=== PATIENT | female | born 1985 | race Caucasian/White ===

== ENCOUNTER 2023-01-28 20:13 | Emergency (ER) | payer OTHER, SELFPAY ==
[2023-01-28 20:20] VITALS: BP 133/81; PULSE 79; RESP 18; TEMP 37.1; O2SAT 100; BMI 20.7
--- NOTE | 2023-01-28 20:30 | XR_ITS ---
The [address] [address] Patient Name: SUKUMAR BULLOCK MRN: [id number] date: 1985 Sex: F Assigned Patient Location: ER Current Patient Location: ER Accession/Order Number: [id number] Exam Date: 01/28/2023 20:56 Report Date: 01/28/2023 21:34 At the request of: AZAEL SAMANIEGO Procedure: XR elbow RT min 3V EXAM: XR elbow RT min 3V, XR shoulder RT min 2V, XR humerus RT HISTORY: Pain following fall COMPARISON: None. TECHNIQUE: 3 views of the elbow, 2 views of the humerus and views of the shoulder FINDINGS: No osseous lesion, fracture, dislocation or subluxation. Joint spaces are normal. No visualized effusion. No visualized soft tissue edema. XR/XR elbow RT min 3V IMPRESSION: Normal x-rays Electronically authenticated by: VIRGINIA STOUT Date: 01/28/2023 21:34
--- NOTE | 2023-01-28 20:30 | XR_ITS ---
[address] [address] Patient Name: SUKUMAR BULLOCK MRN: [id number] date: 1985 Sex: F Assigned Patient Location: ER Current Patient Location: ER Accession/Order Number: [id number] Exam Date: 01/28/2023 20:56 Report Date: 01/28/2023 21:34 At the request of: AZAEL SAMANIEGO Procedure: XR humerus RT EXAM: XR elbow RT min 3V, XR shoulder RT min 2V, XR humerus RT HISTORY: Pain following fall COMPARISON: None. TECHNIQUE: 3 views of the elbow, 2 views of the humerus and views of the shoulder FINDINGS: No osseous lesion, fracture, dislocation or subluxation. Joint spaces are normal. No visualized effusion. No visualized soft tissue edema. XR/XR humerus RT IMPRESSION: Normal x-rays Electronically authenticated by: VIRGINIA STOUT Date: 01/28/2023 21:34
--- NOTE | 2023-01-28 20:30 | XR_ITS ---
The [address] [address] Patient Name: SUKUMAR BULLOCK MRN: [id number] date: 1985 Sex: F Assigned Patient Location: ER Current Patient Location: ER Accession/Order Number: [id number] Exam Date: 01/28/2023 20:56 Report Date: 01/28/2023 21:34 At the request of: AZAEL SAMANIEGO Procedure: XR shoulder RT min 2V EXAM: XR elbow RT min 3V, XR shoulder RT min 2V, XR humerus RT HISTORY: Pain following fall COMPARISON: None. TECHNIQUE: 3 views of the elbow, 2 views of the humerus and views of the shoulder FINDINGS: No osseous lesion, fracture, dislocation or subluxation. Joint spaces are normal. No visualized effusion. No visualized soft tissue edema. XR/XR shoulder RT min 2V IMPRESSION: Normal x-rays Electronically authenticated by: VIRGINIA STOUT Date: 01/28/2023 21:34
--- NOTE | 2023-01-28 20:30 | CT_ITS ---
The [address] [address] Patient Name: SUKUMAR BULLOCK MRN: [id number] date: 1985 Sex: F Assigned Patient Location: ER Current Patient Location: ER Accession/Order Number: [id number] Exam Date: 01/28/2023 20:56 Report Date: 01/28/2023 21:38 At the request of: AZAEL SAMANIEGO Procedure: CT pelvis wo con EXAM: CT pelvis wo con HISTORY: fall COMPARISON: None. TECHNIQUE: Axial CT imaging is performed through the pelvis. Sagittal and coronal reformatted/reconstructed sequences were additionally performed FINDINGS: No visualized fracture, dislocation, subluxation or osseous lesion. The hip joints and sacroiliac joints are unremarkable. Sclerosis of the right and to a lesser degree left aspect of the pubic symphysis suggesting mild chronic osteitis pubis. The visualized bowel exhibits no gross abnormality. No free intraperitoneal or pelvic air or fluid. The bladder contains no calcification. No visualized muscle hematoma. The visualized soft tissues are unremarkable. CT/CT pelvis wo con IMPRESSION: No visualized acute abnormality. Irregularity of the pubic symphysis suggesting mild chronic osteitis pubis Electronically authenticated by: VIRGINIA STOUT Date: 01/28/2023 21:38
[2023-01-28] MEDS: KETOROLAC TROMETHAMINE 30 MG/ML VIAL IM (20:43)
--- NOTE | 2023-01-28 21:01 | ED.FALL1 ---
HPI - Fall General Stated Complaint: UPPER INJURY RIGHT SIDE Time Seen by Provider: 01/28/23 20:22 Source: patient Mode of arrival: walk-in Limitations: no limitations History of Present Illness HPI Narrative: The patient presented to the ER with a right sided back and right shoulder and elbow pain that started after she fell down from her hammock, the patient mentioned that the hammock was not placed correctly and when she got in it it fell down she did not hit her head there was no loss of consciousness but she started having right shoulder and elbow pain right away The patient also have right sacral area pain and she denies any other complaints of weakness or numbness or tingling she was able to walk to the ER Related Data Home Medications Medication Instructions Recorded Confirmed furosemide 40 mg tablet 40 mg PO QDAY 01/28/23 01/28/23 Previous Rx's Medication Instructions Recorded ibuprofen 600 mg tablet 600 mg PO Q8H PRN pain #14 tabs 01/28/23 Allergies Allergy/AdvReac Type Severity Reaction Status Date / Time metoclopramide [From Reglan] AdvReac Severe Anaphylaxis Verified 01/28/23 20:27 Review of Systems ROS Status of ROS 10 or more systems reviewed and unremarkable except as noted in history and below PFSH PFS Social History Smoking status: Current every day smoker Exam Narrative Exam Narrative: Nurses notes and vital signs reviewed and patient is not hypoxic. General: Well-appearing and in no apparent distress. Skin: Warm, dry, no pallor noted. No rash. Head: Normocephalic, atraumatic. Neck: Supple, non-tender. Eye: Pupils are equal, round and EOMI. No scleral icterus. Ears, Nose, Mouth, and Throat: TM are clear, no nasal mucosal hypertrophy. Oral mucosa is moist, no posterior oropharynx erythema, uvula is mid-line Cardiovascular: Regular Rate and Rhythm without murmur, gallop or rub. Respiratory: No accessory muscle use or respiratory distress. Lungs are clear to auscultation, no wheezing, rales or rhonchi Chest Wall: no tenderness Back: No midline thoracic or lumbar vertebral tenderness. No CVA tenderness Musculoskeletal: The patient have a abrasion at the posterior aspect of the right elbow and there is mild swelling there mention to limitation of movement due to pain, the patient also have right shoulder pain with palpation and right sacral area tenderness and right buttock area tenderness GI: Abdomen is soft, non-distended. Normal bowel sounds. No masses appreciated. No tenderness to palpation. No rebound, guarding, or rigidity noted. Neurological: A&O x4. No cranial nerve dysfunction observed. No truncal ataxia. Moves all extremities. Sensation intact. Psychiatric: Cooperative and interactive. Normal mood and affect. Constitutional Vital Signs, click to edit/add: Last Vital Signs Temp 98.8 F 01/28/23 20:20 Pulse 79 01/28/23 20:20 Resp 18 01/28/23 20:20 BP 133/81 01/28/23 20:20 Pulse Ox 100 01/28/23 20:20 O2 Del Method Room Air 01/28/23 20:20 Course Vital Signs Vital signs: Vital Signs Temperature 98.8 F 01/28/23 20:20 Pulse Rate 79 01/28/23 20:20 Respiratory Rate 18 01/28/23 20:20 Blood Pressure 133/81 01/28/23 20:20 Pulse Oximetry 100 01/28/23 20:20 Oxygen Delivery Method Room Air 01/28/23 20:20 Temperature 98.8 F 01/28/23 20:20 Pulse Rate 79 01/28/23 20:20 Respiratory Rate 18 01/28/23 20:20 Blood Pressure 133/81 01/28/23 20:20 Pulse Oximetry 100 01/28/23 20:20 Oxygen Delivery Method Room Air 01/28/23 20:20 MDM - Fall MDM Narrative Medical decision making narrative: The patient x-rays of the elbow shoulder as well as humerus showed no acute pathology as well as the CAT scan of the pelvis The patient was feeling better after Toradol treatment in the ER discharged home with sling applied as well as Amrit wrap and supportive care with ibuprofen The patient is to follow up with primary care physician in next 2-3 days or to return to the emergency department should any of the signs or symptoms worsen or new symptoms develop. The patient agrees with the following Diagnosis and Treatment plan and the patient will be discharged home. Discharge Plan Discharge Clinical Impression: Contusion of elbow, Contusion of sacrum Patient Disposition: Home, Self-Care Time of Disposition Decision: 21:50 Prescriptions / Home Meds: New ibuprofen 600 mg tablet 600 mg PO Q8H PRN (Reason: pain) Qty: 14 0RF No Action furosemide 40 mg tablet 40 mg PO QDAY Instructions: Contusion in Adults (ED) Stand Alone Forms: Portal Instructions Referrals: Physician,Non-Staff, MD [Primary Care Provider] - 1 week
[2023-01-28] MEDS: BACITRACIN 0.9 GM PACKET 1 PACKET TOPICAL (22:07)
== END 2023-01-28 22:30 | disposition home or self-care (01) ==
PROVIDERS: Emergency Provider Emergency Medicine
DX: S50.01XA Contusion of right elbow, initial encounter (principal); S30.0XXA Contusion of lower back and pelvis, initial encounter; W17.89XA Other fall from one level to another, initial encounter; Z79.899 Other long term (current) drug therapy; F17.210 Nicotine dependence, cigarettes, uncomplicated
CPT/HCPCS: 72192; 73030; 73060; 73080; 96372; 99285

== ENCOUNTER 2023-12-23 22:55 | Emergency (ER) | payer OTHER, SELFPAY ==
[2023-12-23 22:59] VITALS: BP 137/99; PULSE 76; TEMP 36.6; O2SAT 100
--- NOTE | 2023-12-23 23:38 | ED_ITS ---
HPI - Abdominal Pain General Chief Complaint: Abdominal Pain Stated Complaint: ABDOMINAL PAIN Time Seen by Provider: 12/23/23 23:34 Source: patient and family Mode of arrival: Wheelchair Limitations: no limitations History of Present Illness HPI narrative: presents complaining of abdominal pain and dysphagia. States what ever she takes in does not want to go down. states was seen at [facility] 3-4 weeks ago . states she was advised she had a blockage . States they wanted to admit her but she wanted to go home and was discharged. Now presents here complaining of abdominal pain and vomiting since yesterday. Describes abdominal distension tonight. No BM in 2 days. No fever. not able to keep anything down. Related Data Allergies Allergy/AdvReac Type Severity Reaction Status Date / Time latex Allergy Unknown Verified 12/23/23 23:04 metoclopramide [From Reglan] AdvReac Severe Anaphylaxis Verified 12/23/23 23:04 Review of Systems ROS Status of ROS 10 or more systems reviewed and unremark able except as noted in history and below PFSH PFS Social History Smoking status: Current every day smoker Exam Constitutional Vital Signs, click to edit/add: Last Vital Signs Temp 97.8 F 12/23/23 22:59 Pulse 74 12/24/23 03:03 Resp 16 12/24/23 03:03 BP 128/72 12/24/23 03:03 Pulse Ox 100 12/24/23 03:03 O2 Del Method Room Air 12/23/23 22:59 Common normals: no apparent distress (mild-mod distress), oriented x3 and alert HENMT Common normals: normocephalic and head/scalp atraumatic Eye Common normals: PERRL, EOMs intact bilaterally and conjunctivae normal Respiratory Common normals: normal respiratory effort, no retractions, no use of accessory muscles and clear to auscultation bilaterally Cardio Common normals: regular rate, regular rhythm, S1 normal heart sound and S2 normal heart sound GI Other: abdomen distended but not firm. gen. tenderness Extremity Common normals: normal to inspection and full ROM Neuro Common normals: oriented x3, CN's II-XII intact bilaterally, moves all extremities, no focal motor deficits and no sensory deficits noted Psych Appearance: grossly normal Course Vital Signs Vital signs: Vital Signs Temperature 97.8 F 12/23/23 22:59 Pulse Rate 76 12/23/23 22:59 Respiratory Rate 18 12/23/23 22:59 Blood Pressure 137/99 H 12/23/23 22:59 Pulse Oximetry 100 12/23/23 22:59 Oxygen Delivery Method Room Air 12/23/23 22:59 Temperature 97.8 F 12/23/23 22:59 Pulse Rate 74 12/24/23 03:03 Respiratory Rate 16 12/24/23 03:03 Blood Pressure 128/72 12/24/23 03:03 Pulse Oximetry 100 12/24/23 03:03 Oxygen Delivery Method Room Air 12/23/23 22:59 MDM - Abdominal Pain MDM Narrative Medical decision making narrative: patient presents with dysphagia/vomiting and abdominal pain. States she is not able to keep anything down. Abdomen is distended but not firm. Labs with mildly elevated WBC and normal LFTs and lipase. CT with findings of 10mm dilated CBD with abrupt narrowing at the distal CBD near the pancreatic head/ampullary region. Main pancreatic duct is dilated up to 4mm. mod. gas and mild liquid stool. no peripancreatic inflammatory stranding. patient continues to complain of pain and will likely need GI consult with complaint of dysphagia and possible need for MRCP. [facility] con tacted and waiting for call back Discussed with hospitalist and patient accepted in transfer Lab Data Labs: Lab Results 12/23/23 12/24/23 Range/Units 23:50 02:02 WBC 13.6 H (4.0-11.0) 10^3/uL RBC 4.78 (4.20-5.40) 10^6/uL Hgb 14.5 (12.0-16.0) g/dL Hct 43.0 (36.0-48.0) % MCV 90.0 (81.0-99.0) fL MCH 30.3 (26.7-34.0) pg MCHC 33.7 (29.9-35.2) g/dL RDW 13.2 (11.0-15.0) % Plt Count 269 (150-450) 10^3/uL MPV 10.5 (9.5-13.5) fL Neut % (Auto) 75.9 H (43.0-75.0) % Lymph % (Auto) 14.8 L (20.5-60.0) % Mcdonald % (Auto) 8.3 (1.7-12.0) % Eos % (Auto) 0.2 L (0.9-7.0) % Baso % (Auto) 0.5 (0.2-2.0) % Neut # (Auto) 10.3 H (1.4-6.5) 10^3/uL Lymph # (Auto) 2.0 (1.2-3.8) 10^3/uL Mcdonald # (Auto) 1.1 H (0.3-0.8) 10^3/uL Eos # (Auto) 0.0 (0.0-0.7) 10^3/uL Baso # (Auto) 0.1 (0.0-0.1) 10^3/uL Abs Immat Gran (auto) 0.04 H (0.00-0.03) 10^3/uL Imm/Tot Granulo (auto) 0.3 (0.0-0.5) % Sodium 140 (136-145) mmol/L Potassium 3.7 (3.5-5.1) mmol/L Chloride 104 (98-107) mmol/L Carbon Dioxide 22.9 (21.0-32.0) mmol/L Anion Gap 16.8 BUN 15.0 (7.0-18.0) mg/dL Creatinine 0.66 (0.55-1.02) mg/dL Est GFR ( Amer) >60 (>=60) Est GFR (Non-Af Amer) >60 (>=60) BUN/Creatinine Ratio 22.7 Glucose 117 H (74-106) mg/dL Lactate 0.9 (0.4-2.0) mmol/L Calcium 9.1 (8.5-10.1) mg/dL Total Bilirubin 0.9 (0.2-1.0) mg/dL AST 8 L (15-37) U/L ALT 17 (14-59) U/L Alkaline Phosphatase 97 (46-116) U/L Troponin I High Sens 4.9 (4.0-51.3) pg/mL Total Protein 7.6 (6.4-8.2) g/dL Albumin 4.1 (3.4-5.0) g/dL Globulin 3.5 g/dL Albumin/Globulin Ratio 1.2 Lipase 39.0 (16.0-77.0) U/L Urine Color Yellow (YELLOW) Urine Clarity Clear (CLEAR) Urine pH 5.5 (5.0-9.0) Ur Specific [place] 1.020 (1.005-1.025) Urine Protein 30 A (NEG/TRACE) mg/dL Urine Glucose (UA) Negative (NEGATIVE) mg/dL Urine Ketones Negative (NEGATIVE) mg/dL Urine Occult Blood Trace-i (NEGATIVE) Urine Nitrite Negative (NEGATIVE) Urine Bilirubin Negative (NEGATIVE) Urine Urobilinogen 1.0 (0.2-1.0) EU/dL Ur Leukocyte Esterase Negative (NEGATIVE) Urine RBC 0-2 (0-2) #/HPF Urine WBC None seen (NONE SEEN) #/HPF Ur Squamous Epith Cells Rare (NONE/RARE) #/LPF Urine Crystals None seen (None Seen) #/HPF Urine Bacteria None seen (NONE SEEN) #/HPF Urine Casts None seen (NONE SEEN) #/LPF Urine Mucus None seen (NONE SEEN) Ur Culture Indicated? No Imaging Data CT scan - abdomen: Radiologist's impression: ITS Impressions Abdomen/Pelvis CT 12/23/23 23:42 IMPRESSION: 10 mm diameter dilated common bile duct with abrupt narrowing at the distal common bile duct near the pancreatic head/ampullary region. Main pancreatic duct is dilated up to 4 mm diameter. Recommend close clinical attention with biliary enzymes. If enzymes are abnormally elevated, then recommend MRI abdomen with MRCP and/or cholangiogram to further evaluate for any biliary ductal obstructive etiology or pancreatic lesion. No peripancreatic inflammatory stranding or free fluid collection. Status post cholecystectomy and appendectomy. Moderate amount of gas and mild amount of liquid stool within the colon. No pericolonic inflammatory stranding. Electronically authenticated by: ISAAK HENRIQUEZ Date: 12/24/2023 01:48 Discharge Plan Discharge Chief Complaint: Abdominal Pain Clinical Impression: Abdominal pain, Dysphagia Patient Disposition: [facility]
--- NOTE | 2023-12-23 23:42 | CT_ITS ---
The [address] [address] Patient Name: SUKUMAR BULLOCK MRN: [id number] date: 1985 Sex: F Assigned Patient Location: ER Current Patient Location: ER Accession/Order Number: [id number] Exam Date: 12/23/2023 23:59 Report Date: 12/24/2023 01:48 At the request of: ZITA GOODMAN Procedure: CT abdomen pelvis w con EXAM: CT abdomen pelvis w con HISTORY: Abdominal pain and vomiting COMPARISON: CT pelvis 01/28/2023, CT abdomen pelvis 05/24/2013 TECHNIQUE: Multiple axial views CT abdomen pelvis or acquired after administration of 100 cc Omnipaque 300 IV contrast. Coronal sagittal reformats performed. FINDINGS: Visualized lung bases and cardiac apex are unremarkable. Status post cholecystectomy. 10 mm diameter dilated common bile duct with abrupt narrowing at the distal common bile duct near the pancreatic head/ampullary region (image 25 series 5). Main pancreatic duct is dilated up to 4 mm diameter. No peripancreatic inflammatory stranding or free fluid collection. Liver, spleen, adrenal glands, kidneys, and underdistended urinary bladder are unremarkable. Appendix is surgically absent. The uterus is seen with endometrial complex measuring 16 mm thick. A 1.5 cm left ovarian cyst. Small hiatal hernia. Stomach is underdistended. No perigastric inflammatory stranding. Moderate amount of gas and mild amount of liquid stool within the colon. No evidence for small bowel obstruction, large ascites, or free air. Retroperitoneal vasculature is unremarkable. No acute bony abnormality. CT/CT abdomen pelvis w con IMPRESSION: 10 mm diameter dilated common bile duct with abrupt narrowing at the distal common bile duct near the pancreatic head/ampullary region. Main pancreatic duct is dilated up to 4 mm diameter. Recommend close clinical attention with biliary enzymes. If enzymes are abnormally elevated, then recommend MRI abdomen with MRCP and/or cholangiogram to further evaluate for any biliary ductal obstructive etiology or pancreatic lesion. No peripancreatic inflammatory stranding or free fluid collection. Status post cholecystectomy and appendectomy. Moderate amount of gas and mild amount of liquid stool within the colon. No pericolonic inflammatory stranding. Electronically authenticated by: ISAAK HENRIQUEZ Date: 12/24/2023 01:48
[2023-12-23] MEDS: ONDANSETRON PF 4 MG/2 ML VIAL IV (23:54)
[2023-12-23] MEDS: 0.9 % SODIUM CHLORIDE 1,000 ML 999 ML IV (23:54)
[2023-12-23] MEDS: FENTANYL CITRATE/PF 100 MCG/2 ML VIAL 50 MCG IV (23:55)
[2023-12-23 23:57] LABS: Basophils Absolute Auto 0.1 10^3/uL (0.0-0.1); Basophils Percent Auto 0.5 % (0.2-2.0); Eosinophils Percent Auto 0.2 % (0.9-7.0); Hemoglobin 14.5 g/dL (12.0-16.0); Immature Granulocytes Abs Auto 0.04 10^3/uL (0.00-0.03); Immature Granulocytes Pct Auto 0.3 % (0.0-0.5); Lymphocytes Percent Auto 14.8 % (20.5-60.0); Mean Corpuscular HGB Conc 33.7 g/dL (29.9-35.2); Mean Corpuscular Hemoglobin 30.3 pg (26.7-34.0); Mean Platelet Volume 10.5 fL (9.5-13.5); Monocytes Absolute Auto 1.1 10^3/uL (0.3-0.8); Monocytes Percent Auto 8.3 % (1.7-12.0); Neutrophils Absolute Auto 10.3 10^3/uL (1.4-6.5); Neutrophils Percent Auto 75.9 % (43.0-75.0); Platelet Count 269 10^3/uL (150-450); Red Blood Count 4.78 10^6/uL (4.20-5.40); Red Cell Distribution Width 13.2 % (11.0-15.0); White Blood Count 13.6 10^3/uL (4.0-11.0)
[2023-12-24] VITALS (7 sets, daily range): BP systolic 106–150; BP diastolic 72–100; PULSE 62–74; O2SAT 100
[2023-12-24 00:13] LABS: Alanine Aminotransferase 17 U/L (14-59); Albumin Globulin Ratio 1.2; Albumin Level 4.1 g/dL (3.4-5.0); Alkaline Phosphatase 97 U/L (46-116); Anion Gap 16.8; Aspartate Amino Transferase 8 U/L (15-37); BUN Creatinine Ratio 22.7; Bilirubin Total 0.9 mg/dL (0.2-1.0); Calcium 9.1 mg/dL (8.5-10.1); Carbon Dioxide 22.9 mmol/L (21.0-32.0); Chloride 104 mmol/L (98-107); Estimated GFR (African America >60 (>=60); Estimated GFR (Non-African Ame >60 (>=60); Globulin 3.5 g/dL; Glucose 117 mg/dL (74-106); Potassium 3.7 mmol/L (3.5-5.1); Sodium 140 mmol/L (136-145); Total Protein 7.6 g/dL (6.4-8.2)
[2023-12-24 00:15] LABS: Lactate/Lactic Acid 0.9 mmol/L (0.4-2.0)
[2023-12-24 00:16] LABS: Troponin I High Sensitivity 4.9 pg/mL (4.0-51.3)
[2023-12-24 02:08] LABS: Bilirubin Urine NEGATIVE (NEGATIVE); Blood Urine TRACE-I (NEGATIVE); Clarity Urine CLEAR (CLEAR); Color Urine YELLOW (YELLOW); Glucose Urine UA NEGATIVE (NEGATIVE); Ketones Urine NEGATIVE (NEGATIVE); Leukocyte Esterase Urine NEGATIVE (NEGATIVE); Nitrite Urine NEGATIVE (NEGATIVE); Protein Urine 30 mg/dL (NEG/TRACE); pH Urine 5.5 (5.0-9.0)
[2023-12-24 02:10] LABS: Urine Microscopic Indicated YES
[2023-12-24 02:14] LABS: Bacteria Urine NONE SEEN #/HPF (NONE SEEN); Cast Seen? NONE SEEN #/LPF (NONE SEEN); Crystals Seen? None Seen #/HPF (None Seen); Mucus Urine NONE SEEN (NONE SEEN); RBC Urine 0-2 #/HPF (0-2); Squamous Epithelial Cell Urine RARE #/LPF (NONE/RARE); Urine Culture Indicated NO; WBC Urine NONE SEEN #/HPF (NONE SEEN)
[2023-12-24] MEDS: 0.9 % SODIUM CHLORIDE 1,000 ML 999 ML IV (03:01)
--- NOTE | 2023-12-24 03:50 | ECG_ITS ---
The [facility] Test Date: 2023-12-24 Pat Name: SUKUMAR BULLOCK Department: Room: - Gender: Female [employer]: : 1985 Requested By: JOSE DAVID PARMAR Order Number: [id number] Reading MD: JOSE DAVID PARMAR Measurements Intervals [place] Rate: 63 P: 72 [place]: 114 QRS: 78 QRSD: 78 T: 43 QT: 448 QTc: 456 Interpretive Statements 1100 Sinus rhythm 2210 Short [place] interval 8304 Long QTc interval 9150 abnormal ECG No previous ECG available for comparison Electronically Signed On 12-24-2023 5:44:06 EDT by JOSE DAVID PARMAR
[2023-12-24] MEDS: ONDANSETRON PF 4 MG/2 ML VIAL IV ×2 (04:09→08:52)
[2023-12-24] MEDS: FENTANYL CITRATE/PF 100 MCG/2 ML VIAL 50 MCG IV ×2 (04:09→08:51)
[2023-12-24] MEDS: 0.9 % SODIUM CHLORIDE 1,000 ML 125 ML IV (04:09)
== END 2023-12-24 09:05 | disposition short-term general hospital (02) ==
PROVIDERS: Emergency Provider Internal Medicine
DX: R10.9 Unspecified abdominal pain (principal); R13.10 Dysphagia, unspecified; F17.200 Nicotine dependence, unspecified, uncomplicated
CPT/HCPCS: 36415; 74177; 80053; 81001; 83605; 83690; 84484; 85025; 93005; 96361; 96374; 96375; 96376; 99285; J2405; J3010; Q9967

== ENCOUNTER 2024-11-15 19:03 | Emergency (ER) | payer SELFPAY ==
[2024-11-15 19:13] VITALS: BP 138/92; PULSE 90; TEMP 36.9; O2SAT 100; BMI 17.5
--- NOTE | 2024-11-15 19:29 | ED_ITS ---
HPI HPI - General Adult General Chief complaint: Headache Stated complaint: HEADACHE Time Seen by Provider: 11/15/24 19:21 Source: patient Mode of arrival: walk-in History of Present Illness HPI narrative: patient states one year ago lumps were found in her left breast suspicious for CA. Biopsy was planned but she never followed up. States she now has lumps right breast and also her scalp. presents today because of occipital headache. Has nausea but has not vomited. Additionally complains of abdominal pain. No diarrhea. No fever or urinary symptoms Related Data Allergies Allergy/AdvReac Type Severity Reaction Status Date / Time latex Allergy Unknown Verified 12/23/23 23:04 metoclopramide (From Reglan) AdvReac Severe Anaphylaxis Verified 12/23/23 23:04 Opioid HPI Opioid Management Most Recent Opioid Data: Last Pain Scale 4 11/15/24, 23:54 Last ED Pain Assessment 11/15/24, 23:54 Last MAR Pain Assessment 11/15/24, 20:55 Review of Systems ROS Status of ROS 10 or more systems reviewed and unremark able except as noted in history and below PFSH [facility] Medical History (Updated 11/16/24 @ 00:01 by Bernardo Jennings MD) History of lupus History of seizures ?Z87.898 - Personal history of other specified conditions (ICD-10) History of kidney stones ?Z87.442 - Personal history of urinary calculi (ICD-10) History of hypertension ?Z86.79 - Personal history of other diseases of the circulatory system (ICD- 10) History of depression ?Z86.59 - Personal history of other mental and behavioral disorders (ICD-10) History of asthma ?Z87.09 - Personal history of other diseases of the respiratory system (ICD- 10) Surgical History (Updated 12/24/23 @ 07:15 by Steffen Kidd) History of laparoscopy ?Z98.890 - Other specified postprocedural states (ICD-10) History of tubal ligation ?Z98.51 - Tubal ligation status (ICD-10) History of laparoscopic cholecystectomy ?Z90.49 - Acquired absence of other specified parts of digestive tract (ICD- 10) History of section ?Z98.891 - History of uterine scar from previous surgery (ICD-10) History of appendectomy ?Z90.49 - Acquired absence of other specified parts of digestive tract (ICD- 10) Social History Smoking status: Current every day smoker Little interest or pleasure in doing things: not at all Feeling down, depressed, or hopeless: not at all Exam Constitutional Vital Signs, click to edit/add: Last Vital Signs Temp 98.4 F 11/15/24 19:13 Pulse 95 H 11/15/24 23:53 Resp 16 11/15/24 23:53 BP 123/82 11/15/24 23:53 Pulse Ox 99 11/15/24 23:53 O2 Del Method Nasal Cannula 11/15/24 23:53 Common normals: average body habitus, oriented x3, no limitations, healthy appearing, alert and well nourished [facility] Common normals: head/scalp atraumatic Other: palpable occipital scalp lesion sl. raised Eye Common normals: PERRL and EOMs intact bilaterally Respiratory Common normals: normal respiratory effort, no retractions, no use of accessory muscles and clear to auscultation bilaterally Cardio Common normals: regular rate, regular rhythm, S1 normal heart sound and S2 no rmal heart sound GI Other: gen. nonspecific tenderness Extremity Common normals: normal to inspection and full ROM Neuro Common normals: oriented x3, CN's II-XII intact bilaterally, moves all extremities and no focal motor deficits Psych Appearance: grossly normal Course Vital Signs Vital signs: Vital Signs Temperature 98.4 F 11/15/24 19:13 Pulse Rate 90 11/15/24 19:13 Respiratory Rate 16 11/15/24 19:13 Blood Pressure 138/92 H 11/15/24 19:13 Pulse Oximetry 100 11/15/24 19:13 Oxygen Delivery Method Room Air 11/15/24 19:13 Temperature 98.4 F 11/15/24 19:13 Pulse Rate 95 H 11/15/24 23:53 Respiratory Rate 16 11/15/24 23:53 Blood Pressure 123/82 11/15/24 23:53 Pulse Oximetry 99 11/15/24 23:53 Oxygen Delivery Method Nasal Cannula 11/15/24 23:53 Medical Decision Making MDM Narrative Medical decision making narrative: patient presents because of a headache. states a year ago she was found to have left breast lump suspicious for CA and biopsy recommended. She did not follow up. She feels she has lumps right breast now . she also endorses lumps in her scalp. Scalp with sl raised lesion but nothing concerning. Her abdomen was tender. CT abdomen with constipation. no acute process. CT C-spine and brain without acute findings. headache treated and patient feeling better. Went in the room to discuss her findings and she was outside smoking a cigarette. She was informed of he results when she returned and directed to follow up with her doctor regarding her breast lumps Lab Data Labs: Lab Results 11/15/24 11/15/24 Range/Units 19:39 20:37 WBC 10.2 (4.0-11.0) 10^3/uL RBC 4.40 (4.20-5.40) 10^6/uL Hgb 14.2 (12.0-16.0) g/dL Hct 39.4 (36.0-48.0) % MCV 89.5 (81.0-99.0) fL MCH 32.3 (26.7-34.0) pg MCHC 36.0 H (29.9-35.2) g/dL RDW 12.3 (11.0-15.0) % Plt Count 203 (150-450) 10^3/uL MPV 10.6 (9.5-13.5) fL Neut % (Auto) 66.5 (43.0-75.0) % Lymph % (Auto) 21.9 (20.5-60.0) % Morgan % (Auto) 9.9 (1.7-12.0) % Eos % (Auto) 1.0 (0.9-7.0) % Baso % (Auto) 0.5 (0.2-2.0) % Neut # (Auto) 6.8 H (1.4-6.5) 10^3/uL Lymph # (Auto) 2.2 (1.2-3.8) 10^3/uL Morgan # (Auto) 1.0 H (0.3-0.8) 10^3/uL Eos # (Auto) 0.1 (0.0-0.7) 10^3/uL Baso # (Auto) 0.1 (0.0-0.1) 10^3/uL Abs Immat Gran (auto) 0.02 (0.00-0.03) 10^3/uL Imm/Tot Granulo (auto) 0.2 (0.0-0.5) % Sodium 140 (136-145) mmol/L Potassium 3.7 (3.5-5.1) mmol/L Chloride 104 (98-107) mmol/L Carbon Dioxide 24.4 (21.0-32.0) mmol/L Anion Gap 15.3 BUN 16.0 (7.0-18.0) mg/dL Creatinine 0.86 (0.55-1.02) mg/dL Est GFR ( Amer) >60 (>=60 mL/min/1.73m^2) Est GFR (Non-Af Amer) >60 (>=60 mL/min/1.73m^2) BUN/Creatinine Ratio 18.6 Glucose 104 (74-106) mg/dL Calcium 8.8 (8.5-10.1) mg/dL Total Bilirubin 0.6 (0.2-1.0) mg/dL AST 13 L (15-37) U/L ALT 16 (14-59) U/L Alkaline Phosphatase 87 (46-116) U/L Total Protein 6.6 (6.4-8.2) g/dL Albumin 3.7 (3.4-5.0) g/dL Globulin 2.9 g/dL Albumin/Globulin Ratio 1.3 Urine Color Lt. yellow (YELLOW) Urine Clarity Sl cloudy (CLEAR) Urine pH 6.5 (5.0-9.0) Ur Specific Hadley <=1.005 A (1.005-1.025) Urine Protein Trace (NEG/TRACE) mg/dL Urine Glucose (UA) Negative (NEGATIVE) mg/dL Urine Ketones Negative (NEGATIVE) mg/dL Urine Occult Blood Trace-i (NEGATIVE) Urine Nitrite Negative (NEGATIVE) Urine Bilirubin Negative (NEGATIVE) Urine Urobilinogen 1.0 (0.2-1.0) EU/dL Ur Leukocyte Esterase Negative (NEGATIVE) Urine RBC 0-2 (0-2) #/HPF Urine WBC 2-5 A (NONE SEEN) #/HPF Ur Squamous Epith Cells Moderate A (NONE/RARE) #/LPF Urine Crystals None seen (None Seen) #/HPF Urine Bacteria Trace A (NONE SEEN) #/HPF Urine Casts None seen (NONE SEEN) #/LPF Urine Mucus None seen (NONE SEEN) Ur Culture Indicated? No Discharge Plan Discharge Chief Complaint: Headache Clinical Impression: Headache, Constipation Patient Disposition: Home, Self-Care Condition: Good Mode of Transportation: Private Vehicle Print Language: Upper Sorbian Instructions: Constipation (ED), Acute Headache (ED) Additional Instructions: follow up with your doctor next week or with Dr Alonso for recheck and to workup your breast mass Referrals: Physician,Non-Staff, MD [Primary Care Provider] - 1 week Discharge Date/Time: 11/16/24 00:10
[2024-11-15 19:45] LABS: Basophils Absolute Auto 0.1 10^3/uL (0.0-0.1); Basophils Percent Auto 0.5 % (0.2-2.0); Eosinophils Absolute Auto 0.1 10^3/uL (0.0-0.7); Hematocrit 39.4 % (36.0-48.0); Hemoglobin 14.2 g/dL (12.0-16.0); Immature Granulocytes Abs Auto 0.02 10^3/uL (0.00-0.03); Immature Granulocytes Pct Auto 0.2 % (0.0-0.5); Lymphocytes Absolute Auto 2.2 10^3/uL (1.2-3.8); Lymphocytes Percent Auto 21.9 % (20.5-60.0); Mean Corpuscular Hemoglobin 32.3 pg (26.7-34.0); Mean Corpuscular Volume 89.5 fL (81.0-99.0); Mean Platelet Volume 10.6 fL (9.5-13.5); Monocytes Percent Auto 9.9 % (1.7-12.0); Neutrophils Absolute Auto 6.8 10^3/uL (1.4-6.5); Neutrophils Percent Auto 66.5 % (43.0-75.0); Platelet Count 203 10^3/uL (150-450); Red Cell Distribution Width 12.3 % (11.0-15.0); White Blood Count 10.2 10^3/uL (4.0-11.0)
[2024-11-15] MEDS: MAGNESIUM SULFATE IN WATER 2 GM/50 ML PREMIX IV (19:53)
[2024-11-15] MEDS: METHYLPREDNISOLONE SOD SUCC PF 125 MG/2 ML VIAL IVP (19:53)
[2024-11-15] MEDS: ONDANSETRON PF 4 MG/2 ML VIAL IV (19:53)
[2024-11-15 19:58] LABS: Alanine Aminotransferase 16 U/L (14-59); Albumin Globulin Ratio 1.3; Albumin Level 3.7 g/dL (3.4-5.0); Alkaline Phosphatase 87 U/L (46-116); Anion Gap 15.3; Aspartate Amino Transferase 13 U/L (15-37); BUN Creatinine Ratio 18.6; Bilirubin Total 0.6 mg/dL (0.2-1.0); Calcium 8.8 mg/dL (8.5-10.1); Carbon Dioxide 24.4 mmol/L (21.0-32.0); Chloride 104 mmol/L (98-107); Estimated GFR (African America >60 (>=60 mL/min/1.73m^2); Estimated GFR (Non-African Ame >60 (>=60 mL/min/1.73m^2); Globulin 2.9 g/dL; Glucose 104 mg/dL (74-106); Potassium 3.7 mmol/L (3.5-5.1); Sodium 140 mmol/L (136-145); Total Protein 6.6 g/dL (6.4-8.2)
[2024-11-15] MEDS: MORPHINE SULFATE 2 MG/ML SYRINGE IV (20:55)
[2024-11-15 21:01] LABS: Bilirubin Urine NEGATIVE (NEGATIVE); Blood Urine TRACE-I (NEGATIVE); Clarity Urine SL CLOUDY (CLEAR); Color Urine LT. YELLOW (YELLOW); Glucose Urine UA NEGATIVE (NEGATIVE); Ketones Urine NEGATIVE (NEGATIVE); Leukocyte Esterase Urine NEGATIVE (NEGATIVE); Nitrite Urine NEGATIVE (NEGATIVE); Protein Urine TRACE mg/dL (NEG/TRACE); Specific Gravity Urine <=1.005 (1.005-1.025); pH Urine 6.5 (5.0-9.0)
[2024-11-15 21:04] LABS: Bacteria Urine TRACE #/HPF (NONE SEEN); Cast Seen? NONE SEEN #/LPF (NONE SEEN); Crystals Seen? None Seen #/HPF (None Seen); Mucus Urine NONE SEEN (NONE SEEN); RBC Urine 0-2 #/HPF (0-2); Squamous Epithelial Cell Urine MODERATE #/LPF (NONE/RARE); Urine Culture Indicated NO
[2024-11-15 23:53] VITALS: BP 123/82; PULSE 95; O2SAT 99
== END 2024-11-16 00:10 | disposition home or self-care (01) ==
PROVIDERS: Emergency Provider Internal Medicine
DX: R51.9 Headache, unspecified (principal); K59.00 Constipation, unspecified; N63.20 Unspecified lump in the left breast, unspecified quadrant; F17.210 Nicotine dependence, cigarettes, uncomplicated
CPT/HCPCS: 36415; 70450; 72125; 74177; 80053; 81001; 85025; 96365; 96375; 99285; J2270; J2405; J2919; J3475; Q9967

== ENCOUNTER 2024-12-15 12:23 | Emergency (ER) | payer OTHER, SELFPAY ==
--- OUTSIDE RECORDS SUMMARY | 2024-12-12 21:37 | XMS_ITS | Encounter Summary ---
Author Organization [facility] tem Address [id number] [address] [place] [address] Care Team Providers Care Christian Science Nurse Name Role Phone Chiquita Waynemike Singh JEWEL FLAT SURFACER-REMOTE SENSING RESEARCH SCIENTIST Primary Care Provide r Reason for Visit * Reason Comments Knee Pain left Encounter Details Date Type Department Care Team (Late st Contact Info) Description 12/12/2024 9:37 PM EDT - 12/12/2024 11:07 PM EDT Emergency [facility] - Emergency [address] [place] [address] Kobe Shannon, [address] [id number] Acute pain of left knee (Primary Dx) Discharge Disposition: Home Social History Tobacco Use Types Packs/Day Years Used Date Smoking Tobacco: Every Day Cigarettes 0.5 11.5 Started: 2013 Smokeless Tobacco: Never Alcohol Use Standard Drinks/Week Comments Yes 0 (1 standard drink = 0.6 oz pur e alcohol) Occasional [facility] Utilities Answer Date Recorded In the past 12 months has [employer] electric, gas, oil, or water company threatened to shut off services in your home? No 12/24/2023 AUDIT-C Answer Date Recorded Q1: How often do you have a drink containing alc ohol? 2-4 times a month 12/24/2023 Q2: How many drinks containi ng alcohol do you have on a typical day when you are drinking? 3 or 4 12/24/2023 Q3: How often do you have si x or more drinks on one occasion? Never 12/24/2023 PHQ-2 Answer Date Recorded Total Score 0 12/24/2023 PRAPARE - Transportation Answer Date Re corded In the past 12 months, has l ack of transportation kept you from medical appointments or from getting medications? No 12/01 In the past 12 months, has l ack of transportation kept you from meetings, work, or from getting things needed for daily living? No 12/24/2023 Housing Instability Answer Date Recorde d Are you worried or concerned that in the next two months you may not have stable housing that you own, rent or stay in as a part of a household? No 12/24/2023 Childcare Answer Date Recorded Childcare Unknown 12/10/2018 Employment Answer Date Recorded Employment Unknown 12/10/2018 Hunger Screening Answer Date Recorded Within the past 12 months we worried whether our food would run out before we got money to buy more. Never True 12/12/2024 Within the past 12 months th e food we bought just didn't last and we didn't have money to get more. Never True 12/12/2024 Purpose - Life Answer Date Recorded Purpose and direction in life Unknown Comments No Sex and Gender Information Value Date Recorded Sex Assigned at Not on file Legal Sex Female 5:58 PM EDT Gender Identity Not on file Sexual Orientation Not on file documented as of this encounter Last Filed Vital Signs Vital Sign Reading Time Taken Comments Blood Pressure 128/70 12/12/2024 10:50 PM EDT Pulse 88 12/12/2024 10:50 PM EDT Temperature 36.7 C (98.1 F) 12/12/2024 9:37 PM EDT Respiratory Rate 18 12/12/2024 10:50 PM EDT Oxygen Saturation 98% 12/12/2024 10:50 PM EDT Inhaled Oxygen Concentration - - Weight 61.2 kg (135 lb) 12/12/2024 9:37 PM EDT Height 175.3 cm (5' 9 ) 12/12/2024 9:37 PM EDT Body Mass Index 19.94 12/12/2024 9:37 PM EDT documented in this encounter Discharge Instructions * Discharge Instructions* Kobe Shannon DO - 12/12/2024 10:57 PM EDT Follow up with the primary care provider for repeat evaluation. If you had imaging done today you will need to follow up with the primary care provider to discuss potential incidental findings on imaging as these may be important and may need further testing. Return to the emergency department for any worsening symptoms, significant chest pain or shortness of breath documented in this encounter Medications at Time of Discharge benzocaine-mentho L (CHLORASEPTIC SORE THROAT) 6-10 mg lozenge Dissolve 1 lozenge in the mouth every 2 (two) hours as needed for sore throat. 100 tablet 06/12/2024 busPIRone (BUSPAR) 5 mg tablet Take 1 tablet (5 mg total) by mouth in the morning and 1 tablet (5 mg total) before bedtime. furosemide (LASIX) 20 mg tablet Take 1 tablet (20 mg total) by mouth daily. levETIRAcetam (KEPPRA) 500 mg tablet Take 1 tablet (500 mg total) by mouth in the morning and 1 tablet (500 mg total) before bedtime. methocarbamoL (ROBAXIN) 500 mg tablet Take 1 tablet (500 mg total) by mouth in the morning and 1 tablet (500 mg total) before bedtime. 20 tablet 12/12/2024 metoprolol tartrate (LOPRESSOR) 100 mg tablet Take 1 tablet (100 mg total) by mouth in the morning and 1 tablet (100 mg total) before bedtime. documented as of this encounter ED Notes * Renetta Devine RN - 12/12/2024 9:41 PM EDT Pt ambulated to Room with complains of left knee pain and leg pain. Pain started yesterday. documented in this encounter Plan of Treatment Not on file documented as of this encounter Goals Goal Patient Goal Type Associated Problems Recent Progress Patient-Stated? Author home General Yes Olga Darling RN Note: Evaluation of progress towards goal: home self care documented as of this encounter Visit Diagnoses Diagnosis Acute pain of left knee- Primary documented in this encounter Administered Medications Inactive Administered Medications - up to 3 most recent administrations Medication Order MAR Action Action Date Dose Rate Site ketorolac (TORADOL) injection 15 mg 15 mg, intramuscular, Once, On Sun12/12/24 at 2155, For 1 dose, Look-alike/sound-alike medication - verify indication for use. Duration of therapy is not to exceed 5 days. Maximum recommended dose + 120mg/24 hours. Given 12/12/2024 9:58 PM EDT 15 mg Left Deltoid orphenadrine (NORFLEX) injection 30 mg 30 mg, intramuscular, Once, On Sun12/12/24 at 2155, For 1 dose, If ordered IV: give over [address] patient in supine position during and for 5-10 minutes following injection. Given 12/12/2024 9:58 PM EDT 30 mg Right Deltoid documented in this encounter Active and Recently Administered Medications Times are shown in EDT. Scheduled Medication Order 12/10/2024 12/11/2024 12/12/2024 ketorolac (TORADOL) injection 15 mg (COMPLETED) 15 mg, intramuscular, Once, On Sun12/12/24 at 2155, For 1 dose, Look-alike/sound-alike medication - verify indication for use. Duration of therapy is not to exceed 5 days. Maximum recommended dose + 120mg/24 hours. 2157 (Given - Provid er: Renetta Devine RN) orphenadrine (NORFLEX) injection 30 mg (COMPLETED) 30 mg, intramuscular, Once, On Sun12/12/24 at 2155, For 1 dose, If ordered IV: give over [address] patient in supine position during and for 5-10 minutes following injection. 2157 (Given - Provid er: Renetta Devine RN) documented in this encounter Additional Health Concerns Assessment Noted Time PHQ-9 Depression Total Score: 0 12/24/19 24 4:04 PM EDT documented as of this encounter Care Teams Christian Science Nurse Relationship Specialty Start Date End Date Aury Wayne APRN-SHANELLE [address] [place] [id number] PCP - General Family Medicine 10/30/24 documented as of this encounter
--- OUTSIDE RECORDS SUMMARY | 2024-12-15 12:28 | XMS_ITS | Clinical Summary ---
Author Organization [facility] Address [facility] [place] [address] Care Team Providers Care Hand Flatwork Finisher Name Role Phone Aury Wayne SHANELLE Primary Care Provider [phone] Allergies Active Allergy Reactions Criticality Noted Date Comments Latex Other: See Comments 11/18/2011 Eats skin away Metoclopramide Hcl Hives 11/18/2011 Medications cyclobenzaprine 10 mg tablet Take 1 tablet by mouth every 8 hours as needed for Muscle Spasm (or pain). 14 tablet 0 2 Active Gabapentin 300 mg Tab Take 1 tablet by mouth three times daily. 90 tablet 0 2 Active ibuprofen 600 mg tablet Take 1 tablet by mouth every 6 hours as needed for Pain. 28 tablet 0 2 Active albuterol HFA (PROVENTIL HFA, VENTOLIN HFA) 90 mcg/actuation inhaler Inhale 2 Puffs as instructed. 0 Active aspirin, enteric coated (ASPIRIN, ENTERIC COATED) 81 mg EC tablet Take 1 tablet by mouth once daily. 0 Active atorvastatin (LIPITOR) 20 mg tablet Take 1 tablet by mouth once daily. 0 Active budesonide-form oterol (SYMBICORT) 160-4.5 mcg/actuation inhaler Inhale 2 Puffs as instructed. 0 Active buprenorphine-n aloxone (SUBOXONE) 8-2 mg film 1 Active buPROPion SR (ZYBAN SR; WELLBUTRIN SR) 150 mg 12 hr tablet Take 150 mg by mouth twice daily. 2 Active busPIRone (BUSPAR) 15 mg tablet Take 15 mg by mouth twice daily. 2 Active furosemide (LASIX) 40 mg tablet Take 1 tablet by mouth once daily. 1 Active montelukast (SINGULAIR) 10 mg tablet Take 1 tablet by mouth once daily. 0 Active naloxone 4 mg/actuation nasal spray (NARCAN) Use 1 Onset in the nose. 0 Active polyethylene glycol 3350 (MIRALAX, GLYCOLAX) 17 gram/dose powder DISSOLVE one capful (17g) into 4-8oz. of liquid AND drink daily 2 Active potassium chloride ER (K-DUR, KLOR-CON) 10 mEq tablet Take 1 tablet by mouth once daily. 0 Active promethazine (PHENERGAN) 25 mg tablet TAKE ONE TABLET BY MOUTH EVERY 8 HOURS NEEDED FOR NAUSEA AND VOMITING 2 Active STOOL SOFTENER-STIMUL ANT LAXAT 8.6-50 mg per tablet TAKE 1 OR 2 TABLETS BY MOUTH TWICE DAILY NEEDED FOR CONSTIPATION 2 Active sertraline (ZOLOFT) 25 mg tablet Take 25 mg by mouth once daily. 2 Active sucralfate (CARAFATE) 1 gram tablet Carafate 1 gram tablet Take 1 tablet 4 times a day by oral route. Active Active Problems No known active problems Family History Medical History Relation Comments Prostate Cancer Father Cancer Mother Relation Status Comments Father Alive Mother Social History Tobacco Use Types Packs/Day Years Used Date Smoking Tobacco: Every Day Cigarettes Smokeless Tobacco: Never Alcohol Use Standard Drinks/Week Comments Not Currently 0 (1 standard drink = 0.6 oz pur e alcohol) Area Deprivation Index Answer Date Randy rded National Score (1-100), lower number is lower ri sk 85 2022 State Score (1-10), lower number is lower risk N ot on file 2022 Data from: https://www.neighborhoodatlas.medicine.[facility].edu/. Last address used for calculation [address]22 Comments Unknown Sex and Gender Information Value Date Recorded Sex Assigned at Not on file Legal Sex Female 9:37 AM EST Gender Identity Not on file Sexual Orientation Not on file Last Filed Vital Signs Vital Sign Reading Time Taken Comments Blood Pressure 108/70 01/17/2022 10:51 AM EDT Pulse 82 01/17/2022 10:51 AM EDT Temperature 36.8 C (98.2 F) 01/17/2022 10:51 AM EDT Respiratory Rate 18 01/17/2022 10:51 AM EDT Oxygen Saturation 100% 01/17/2022 10:51 AM EDT RA Inhaled Oxygen Concentration - - Weight 59.4 kg (131 lb) 01/17/2022 10:51 AM EDT Height 169.9 cm (5' 6.9 ) 01/17/2022 10:51 AM ED T Body Mass Index 20.58 01/17/2022 10:51 AM EDT Plan of Treatment Health Maintenance Due Date Last Done Comments Anxiety Screening 2005 Depression Screening 2005 HIV Screening 2005 Hepatitis B Vaccine (1 of 3 - 19+ 3-dose series) 2006 Cervical Cancer Screening 2008 Pneumococcal Vaccine (2 of 2 - PCV) 08/21/2021 08/21/2020 Covid-19 Vaccine (1 - 2023-2 5 season) 2024 Influenza Vaccine (Season Ended) 2025 DTaP,Tdap,Td Vaccine (10 - T d or Tdap) 04/17/2032 04/17/2022, 01/27/2021, 08/21/2020, Additional history exists Hepatitis C Screening Completed 07/13/2020 , 04/28/2019, 12/26/2018, Additional history exists Insurance [facility] MEDICA[employer] Care Teams Hand Flatwork Finisher Relationship Specialty Start Date End Date Aury Wayne CNP [address] [place] [address] PCP - General 01/12/22
--- OUTSIDE RECORDS SUMMARY | 2024-12-15 12:28 | XMS_ITS | Encounter Summary ---
Author Organization [employer] [facility] Address [id number] [address] [place] [address] Care Team Providers Care Analysis Evaluator Name Role Phone Chiquita Waynemike Singh CV RN-TRADING FLOOR OPERATOR Primary Care Provide r Encounter Details Date Type Department Care Team (Late st Contact Info) Description 12/31/2023 Orders Only [facility] [address] [place] [address] External, Scanning Provider Social History Tobacco Use Types Packs/Day Years Used Date Smoking Tobacco: Every Day Cigarettes 0.5 11.5 Started: 2013 Smokeless Tobacco: Never Alcohol Use Standard Drinks/Week Comments Yes 0 (1 standard drink = 0.6 oz pur e alcohol) Occasional [facility] Utilities Answer Date Recorded In the past 12 months has e electric, gas, oil, or water company threatened [...] got money to buy more. Never True 12/24/2023 Within the past 12 months th e food we bought just didn't last and we didn't have money to get more. Never True 12/24/2023 Purpose - Life Answer Date Recorded Purpose and direction in life Unknown Comments No Sex and Gender Information Value Date Recorded Sex Assigned at Not on file Legal Sex Female 5:58 PM EDT Gender Identity Not on file Sexual Orientation Not on file documented as of this encounter Plan of Treatment Not on file documented as of this encounter Goals Goal Patient Goal Type Associated Problems Recent Progress Patient-Stated? Author home General Yes Olga Darling, RN Note: Evaluation of progress towards goal: home self care documented as of this encounter Visit Diagnoses Not on filedocumented in this encounter Additional Health Concerns Infection Onset Date Last Indicated Resolved Time COVID-19 Rule-Out 06/12/2024 06/12/2024 06/12/2024 7:00 AM EST Assessment Noted Time PHQ-9 Depression Total Score: 0 12/24/19 24 4:04 PM EDT documented as of this encounter Care Teams Analysis Evaluator Relationship Specialty Start Date End Date Aury Wayne, CV RN-TRADING FLOOR OPERATOR [address] [place] [address] PCP - General Family Medicine 10/30/24 documented as of this encounter
--- OUTSIDE RECORDS SUMMARY | 2024-12-15 12:28 | XMS_ITS | Clinical Summary ---
Author Organization [facility] tem Address [id number] [address] [place] [address] Care Team Providers Care Fats And Oils Loader Name Role Phone ToneChiquita castillomike Singh CAPSULE FILLING MACHINE OPERATOR-DIVISION TOLL WIRE CHIEF Primary Care Provide r Allergies Active Allergy Reactions Criticality Noted Date Comments Latex Hives,Other (See Comments) High 08/26/2013 Metoclopramide Hcl 08/26/2020 Throat swells, hives Medications furosemide (LASIX) 20 mg tablet Take 1 tablet (20 mg total) by mouth daily. Active levETIRAcetam (KEPPRA) 500 mg tablet Take 1 tablet (500 mg total) by mouth in the morning and 1 tablet (500 mg total) before bedtime. Active busPIRone (BUSPAR) 5 mg tablet Take 1 tablet (5 mg total) by mouth in the morning and 1 tablet (5 mg total) before bedtime. Active metoprolol tartrate (LOPRESSOR) 100 mg tablet Take 1 tablet (100 mg total) by mouth in the morning and 1 tablet (100 mg total) before bedtime. Active benzocaine-ment hoL (CHLORASEPTIC SORE THROAT) 6-10 mg lozenge Dissolve 1 lozenge in the mouth every 2 (two) hours as needed for sore throat. 100 tablet 06/12/2024 Active methocarbamoL (ROBAXIN) 500 mg tablet Take 1 tablet (500 mg total) by mouth in the morning and 1 tablet (500 mg total) before bedtime. 20 tablet 12/12/2024 Active Active Problems Problem Noted Date Diagnosed Date Dysphagia 12/24/2023 Abdominal pain 12/24/2023 Encounters Date Type Department Care Team Description 12/12/2024 9:37 PM EDT - 12/12/2024 11:07 PM EDT Emergency [facility] [address] [place] [address] Kobe Shannon, Acute pain of left knee (Primary Dx) Discharge Disposition: Home 12/12/2024 Travel 10/30/2024 2:36 PM EDT - 10/30/2024 4:05 PM EDT Emergency [facility] - Emergency [address] [place] [address] Kobe Shannon, Left arm pain (Primary Dx) Discharge Disposition: Home 10/30/2024 Travel 10/17/2024 8:51 AM EDT - 10/17/2024 10:32 AM EDT Emergency [facility] - Emergency [address] [place] [address] Kimani Ware MD Numbness and tingling in both hands (Primary Dx) Discharge Disposition: Home 10/17/2024 Travel from Last 3 Months Immunizations Immunization Administration Dates Next Due DTP 05/18/1989,11/21/1988,04/24/1988 DTaP, Unspecified 03/25/1993,04/23/1990 HiB 04/23/1990 IPV 03/25/1993,05/18/1989,11/21/1988 ,04/24/1988 MMR 02/13/2000,03/25/1993 Pneumococcal Polysaccharide 08/21/2020 Tdap 04/17/2022,01/27/2021,08/21/2020 ,2006 Family History Medical History Relation Name Comments Breast cancer Maternal Aunt Relation Name Status Comments Brother Alive Daughter Alive Father Maternal Aunt Mother Sister Alive Son Alive Social History Tobacco Use Types Packs/Day Years Used Date Smoking Tobacco: Every Day Cigarettes 0.5 11.5 Started: 2013 Smokeless Tobacco: Never Tobacco Cessation:Ready to Q uit: Not Asked; Counseling Given: Not Answered Alcohol Use Standard Drinks/Week Comments Yes 0 (1 standard drink = 0.6 oz pur e alcohol) Occasional C Utilities Answer Date Recorded In the past 12 months has th e electric, gas, oil, or water company [...] Mass Index 19.94 12/12/2024 9:37 PM EDT Plan of Treatment Health Maintenance Due Date Last Done Comments Tobacco Counseling 1987 Pap Smear 04/05/2024 04/05/2021 Depression Screening 12/23/2024 12/24/2023 Influenza Vaccine 03/02/2025 Adult BMI Screening 12/12/2025 12/12/2024 Tobacco Screening 12/12/2025 12/12/2024 DTaP,Tdap and Td Vaccines (1 0 - Td or Tdap) 04/17/2032 04/17/2022, 01/27/2021, 08/21/2020, Additional history exists Goals Goal Patient Goal Type Associated Problems Recent Progress Patient-Stated? Author home General Yes Olga Darling, RN Note: Evaluation of progress towards goal: home self care Medical Devices Not on file Procedures Procedure Name Priority Date/Time Associated Diagnosis Comments VASC VENOUS DUPLEX UPPER LEFT STAT 10/30/2024 3:38 PM EDT TROPONIN I, HIGH SENSITIVITY 0 HOUR STAT 10/30/2024 3:06 PM EDT D-DIMER STAT 10/30/2024 3:06 PM EDT CBC WITH AUTO DIFFERENTIAL STAT 10/30/2024 3:06 PM EDT COMPREHENSIVE METABOLIC PANEL STAT 10/30/2024 3:06 PM EDT TROPONIN I, HIGH SENSITIVITY 0 HOUR STAT 10/30/2024 3:06 PM EDT ECG 12-LEAD STAT 10/30/2024 3:04 PM EDT POCT IONIZED CALCIUM STAT 10/17/2024 9:18 AM EDT COMPREHENSIVE METABOLIC PANEL STAT 10/17/2024 9:09 AM EDT CBC WITH AUTO DIFFERENTIAL STAT 10/17/2024 9:09 AM EDT from Last 3 Months Results * Vas venous duplex upr single left (10/30/2024 3:38 PM EDT) Anatomical Region Laterality Modality Vascular Left Ultrasound 10/30/2024 3:40 PM EDT Narrative 10/30/2024 4:38 PM EDT Right: Subclavian vein with spontaneous pulsatile spectral Doppler waveforms. Left: Internal jugular, axillary, brachial deep veins are compressible. Spontaneous pulsatile spectral Doppler waveforms in all deep veins including subclavian. Superficial veins are compressible. Conclusions: No evidence of deep (internal jugular, subclavian, axillary, brachial) or superficial thrombosis of the left upper extremity. No evidence of deep vein thrombosis (DVT) of the right subclavian vein. Procedure Note Esteban Chapa MD - 10/30/2024 Right: Subclavian vein with spontaneous pulsatile spectral Dopplerwaveforms. Left: Internal jugular, axillary, brachial deep veins are compressible.Spontaneous pulsatile spectral Doppler waveforms in all deep veinsincluding subclavian. Superficial veins are compressible. Conclusions: No evidence of deep (internal jugular, subclavian, axillary,brachial) or superficial thrombosis of the left upper extremity. Noevidence of deep vein thrombosis (DVT) of the right subclavian vein. us Kobe Shannon DO CV VASCULAR ORDERABLES Final Result * Troponin I, High Sensitivity 0 Hour (10/30/2024 3:06 PM EDT) TROPONIN I, HIGH SENSITIVITY <2 <16 ng/L 10/30/2024 3:37 PM EDT [facility] Blood Venous blood / Unknown Venipuncture / Unknown 10/30/2024 3:06 PM EDT 10/30/2024 3:08 PM EDT Kobe Shannon DO LAB BLOOD ORDERABLES Final R esult [facility] [address] [place] [address], * CBC auto differential (10/30/2024 3:06 PM EDT) Only the most recent of2 resultswithin the time period is included. WBC 8.5 4 - 11 x10E9/L 10/30/2024 3:12 PM EDT [facility] RBC Count 4.35 3.8 - 5.2 X10E12/L 10/30/2024 3:12 PM EDT [facility] Hemoglobin 14.1 11.7 - 15.5 g/dL 10/30/2024 3:12 PM EDT [facility] Hematocrit 40.5 35 - 47 % 10/30/2024 3:12 PM EDT [facility] MCV 93 80 - 100 fL 10/30/2024 3:12 PM EDT [facility] MCH 32.5 27 - 34 pg 10/30/2024 3:12 PM EDT [facility] MCHC 34.9 32 - 36 g/dL 10/30/2024 3:12 PM EDT [facility] RDW 13.8 11.5 - 15 % 10/30/2024 3:12 PM EDT [facility] Platelet Count 239 150 - 450 X10E9/L 10/30/2024 3:12 PM EDT [facility] MPV 8.8 7 - 12 fL 10/30/2024 3:12 PM EDT [facility] Neutrophils Relative 62.9 % 10/30/2024 3:12 PM EDT [facility] Lymphocytes Relative 29.2 % 10/30/2024 3:12 PM EDT [facility] Monocytes Relative 6.0 % 10/30/2024 3:12 PM EDT [facility] Eosinophils Relative 1.1 % 10/30/2024 3:12 PM EDT [facility] Basophils Relative 0.8 % 10/30/2024 3:12 PM EDT [facility] Neutrophils Absolute (A) 5.4 10*3/uL 10/30/2024 3:12 PM EDT [facility] Lymphocytes Absolute 2.5 10*3/uL 10/30/2024 3:12 PM EDT [facility] Monocytes Absolute 0.5 10*3/uL 10/30/2024 3:12 PM EDT [facility] Eosinophils Absolute 0.1 10*3/uL 10/30/2024 3:12 PM EDT [facility] Basophils Absolute 0.1 10*3/uL 10/30/2024 3:12 PM EDT [facility] Differential Type AUTOMATED DIFFERENTIAL 10/30/2024 3:12 PM EDT [facility] Blood Venipuncture / Unknown 10/30/2024 3:06 PM EDT 10/30/2024 3:09 PM EDT Kobe Shannon DO LAB BLOOD ORDERABLES Final R esult [facility] [address] [place] [address], [place] * D-Dimer (10/30/2024 3:06 PM EDT) D DIMER <150 1 - 255 ug/mL 10/30/2024 3:38 PM EDT [facility] Comment:Results <255 ng/mL D DU: The presensence of a VTE can safely be excluded with a negative D-Dimer result and Wells score. A negative result doesn't exclude the possibility of DIC. The test should be repeated along with other diagnostic tests if the patient's symptoms persist or worsen. Blood Venous blood / Unknown Venipuncture / Unknown 10/30/2024 3:06 PM EDT 10/30/2024 3:09 PM EDT [facility] LAB BLOOD ORDERABLES Final R esult [facility] [address] [place] [address], * (ABNORMAL) Comprehensive metabolic panel (10/30/2024 3:06 PM EDT) Only the most recent of2 resultswithin the time period is included. SODIUM 136 134 - 146 mmol/L 10/30/2024 3:27 PM EDT [facility] POTASSIUM 3.3(L) 3.5 - 5.0 mmol/L 10/30/2024 3:27 PM EDT [facility] CHLORIDE 106 98 - 109 mmol/L 10/30/2024 3:27 PM EDT [facility] CARBON DIOXIDE 23 22 - 32 mmol/L 10/30/2024 3:27 PM EDT [facility] ANION GAP 7 5 - 15 mmol/L 10/30/2024 3:27 PM EDT [facility] BLOOD UREA NITROGEN 9 5 - 23 mg/dL 10/30/2024 3:27 PM EDT [facility] CREATININE 0.69 0.40 - 1.00 mg/dL 10/30/2024 3:27 PM EDT [facility] Comment:METHOD TRACEABLE TO IDMS STANDARD GLUCOSE 93 65 - 99 mg/dL 10/30/2024 3:27 PM EDT [facility] CALCIUM 8.8 8.5 - 10.5 mg/dL 10/30/2024 3:27 PM EDT [facility] TOTAL PROTEIN 6.5 6.0 - 8.0 g/dL 10/30/2024 3:27 PM EDT [facility] ALBUMIN 4.0 3.2 - 5.3 g/dL 10/30/2024 3:27 PM EDT [facility] ALKALINE PHOSPHATASE 77 39 - 130 U/L 10/30/2024 3:27 PM EDT [facility] AST 18 <=41 U/L 10/30/2024 3:27 PM EDT [facility] ALT 13 <=31 U/L 10/30/2024 3:27 PM EDT [facility] BILIRUBIN,TOTAL 0.7 0.3 - 1.2 mg/dL 10/30/2024 3:27 PM EDT [facility] EGFR Non-Race Dependent >90 >=60 ml/min/1.7 3sq.m 10/30/2024 3:27 PM EDT [facility] Comment: eGFR not reported due to non-numeric value for Creatinine. Reported eGFR is based on the CKD-EPI 2020 equation that does not use a race coefficient. Blood Venous blood / Unknown Venipuncture / Unknown 10/30/2024 3:06 PM EDT 10/30/2024 3:08 PM EDT Kobe Shannon DO LAB BLOOD ORDERABLES Final R esult Performing Organization Address [facility]/ZIP Co de Phone Number [facility] [address] [place] [address], * Electrocardiogram, 12-lead (10/30/2024 3:04 PM EDT) 10/30/2024 3:04 PM EDT Narrative [facility] - 11/11/2024 7:48 AM EDT Kobe Shannon DO ECG ORDERABLES Final Result Performing Organization Address City/[facility]/ZIP Co de Phone Number [facility] * POCT Ionized Calcium (10/17/2024 9:18 AM EDT) Portable ICA 4.6 4.5 - 5.3 mg/dL 10/17/2024 9:20 AM EDT [facility] Blood / Unknown 10/17/2024 9 :18 AM EDT 10/17/2024 9:20 AM EDT Kimani Ware MD POINT OF CARE TEST ORDERABLES Final Result [facility] [address] [facility] [place] [address] from Last 3 Months Insurance [employer] Advance Directives * Full Code (Latest Code Status on File) Date Activated Date Inactivated Comments 12/24/2023 11:06 AM 12/25/2023 8:23 PM Care Teams Fats And Oils Loader Relationship Specialty Start Date End Date Aury Wayne APRN-SHANELLE [address] [place] [address] PCP - General Family Medicine 10/30/24
--- OUTSIDE RECORDS SUMMARY | 2024-12-15 12:29 | XMS_ITS | Encounter Summary ---
Author Organization [employer] tem Address [id number] [address] [place] [address] Care Team Providers Care Clinical Appeals Reviewer Name Role Phone Tone, Aury Singh APRN-TECHNICAL SALES CONSULTANT Primary Care Provide r Encounter Details Date Type Department Care Team (Latest Contact Info) Description 12/12/2024 Travel Social History Tobacco Use Types Packs/Day Years Used Date Smoking Tobacco: Every Day Cigarettes 0.5 11.5 Started: 2013 Smokeless Tobacco: Never Alcohol Use Standard Drinks/Week Comments Yes 0 (1 standard drink = 0.6 oz pur e alcohol) Occasional [facility] Utilities Answer Date Recorded In the past 12 months has [employer] electric, gas, oil, or water company threatened [...] filedocumented in this encounter Additional Health Concerns Assessment Noted Time PHQ-9 Depression Total Score: 0 12/24/19 24 4:04 PM EDT documented as of this encounter Care Teams Clinical Appeals Reviewer Relationship Specialty Start Date End Date Aury Wayne APRN-SHANELLE [address] [place] [address] PCP - General Family Medicine 10/30/24 documented as of this encounter
--- OUTSIDE RECORDS SUMMARY | 2024-12-15 12:29 | XMS_ITS | Clinical Summary ---
Author Organization [facility] Address [address] [place] [address] Phone Care Team Providers Care Embedded Systems Software Engineer Name Role Phone Unavailable Primary Care Provider Unavailabl e Social History Tobacco Use Types Packs/Day Years Used Date Smoking Tobacco: Never Assessed Comments Unknown Sex and Gender Information Value Date Recorded Sex Assigned at Not on file Legal Sex Female 10:29 AM EST Gender Identity Not on file Sexual Orientation Not on file Plan of Treatment Not on file
--- OUTSIDE RECORDS SUMMARY | 2024-12-15 12:29 | XMS_ITS | Encounter Summary ---
Author Organization [facility] tem Address [id number] [address] [place] [address] Care Team Providers Care Weight Tester Name Role Phone Aury Wayne APRN-CORN HUSKER Primary Care Provide r Encounter Details Date Type Department Care Team (Late st Contact Info) Description 08/03/2021 Telephone [facility] Division [facility] - Medical Oncology [address] [place] [id number] [facility] [address] [place] [address] Social History Tobacco Use Types Packs/Day Years Used Date Smoking Tobacco: Every Day Cigarettes 1 7 Smokeless Tobacco: Never Alcohol Use Standard Drinks/Week Comments Yes 0 (1 standard drink = 0.6 oz pur e alcohol) Occasional Childcare Answer Date Recorded Childcare Unknown 12/10/2018 Employment Answer Date Recorded Employment Unknown 12/10/2018 Purpose - Life Answer Date Recorded Purpose and direction in life Unknown Comments No Sex and Gender Information Value Date Recorded Sex Assigned at Not on file Legal Sex Female 5:58 PM EDT Gender Identity Not on file Sexual Orientation Not on file COVID-19 Exposure Response Date Recorded In the last month, have you been in contact with someone who was confirmed or suspected to have Coronavirus / COVID-19? No / Unsure 07/07/2021 11:35 AM EST documented as of this encounter Miscellaneous Notes * Telephone Encounter - Yudithmarsha Padillale - 08/03/2021 10:40 AM EST 08/03/21 10:41AM CALLED & SPOKE TO PT & CONFIRMED APT FOR SunAug @ 11:00AM KO documented in this encounter Plan of Treatment Not on file documented as of this encounter Visit Diagnoses Not on filedocumented in this encounter Additional Health Concerns Infection Onset Date Last Indicated Resolved Time COVID-19 Rule-Out 12/30/2022 12/30/2022 12/30/2022 11:49 AM EDT COVID-19 Rule-Out 06/12/2024 06/12/2024 06/12/2024 7:00 AM EST documented as of this encounter Care Teams Weight Tester Relationship Specialty Start Date End Date Aury Wayne APRN-SHANELLE [address] [place] [address] PCP - General Family Medicine 10/30/24 documented as of this encounter
[2024-12-15 12:30] VITALS: BP 140/97; PULSE 76; TEMP 36.6; O2SAT 100; BMI 19.9
--- NOTE | 2024-12-15 12:41 | ED.GENADUL1 ---
HPI HPI - General Adult General Chief complaint: Extremity Problem, Nontraumatic Stated complaint: L ARM PAIN SWELLING Time Seen by Provider: 12/15/24 12:27 Source: patient Mode of arrival: walk-in Limitations: no limitations History of Present Illness HPI narrative: 39-year-old female presents for pain and swelling in her left arm. It was not precipitated by any injury. She woke up this way yesterday morning. She is worried about a blood clot. She has had them before and has been off of her blood thinner for 1 or 2 years. She stopped taking it herself, she was not taken off of it by her physician. No swelling in her legs or chest pain or shortness of breath. She points to her forearm going up into the bicep area to indicate where her pain is. Related Data Home Medications ?Medication ?Instructions ?Recorded ?Confirmed levetiracetam 500 mg tablet 500 mg PO BID 12/15/24 12/15/24 methocarbamol 500 mg tablet 500 mg PO BID 12/15/24 12/15/24 Allergies Allergy/AdvReac Type Severity Reaction Status Date / Time latex Allergy Unknown Hives Verified 12/15/24 12:30 metoclopramide (From Reglan) AdvReac Severe Anaphylaxis Verified 12/15/24 12:30 Opioid HPI Opioid Management Most Recent Opioid Data: Last Pain Scale 5 Today, 12:42 Review of Systems ROS Narrative A ten point review of systems is negative except as noted above. [facility] Medical History (Updated 12/15/24 @ 13:10 by Jose Braun MD) History of lupus History of seizures ?Z87.898 - Personal history of other specified conditions (ICD-10) History of kidney stones ?Z87.442 - Personal history of urinary calculi (ICD-10) History of hypertension ?Z86.79 - Personal history of other diseases of the circulatory system (ICD-10) History of depression ?Z86.59 - Personal history of other mental and behavioral disorders (ICD-10) History of asthma ?Z87.09 - Personal history of other diseases of the respiratory system (ICD-10) Surgical History History of laparoscopy ?Z98.890 - Other specified postprocedural states (ICD-10) History of tubal ligation ?Z98.51 - Tubal ligation status (ICD-10) History of laparoscopic cholecystectomy ?Z90.49 - Acquired absence of other specified parts of digestive tract (ICD-10) History of section ?Z98.891 - History of uterine scar from previous surgery (ICD-10) History of appendectomy ?Z90.49 - Acquired absence of other specified parts of digestive tract (ICD-10) Social History Smoking status: Current every day smoker Little interest or pleasure in doing things: not at all Feeling down, depressed, or hopeless: not at all Exam Narrative Exam Narrative: Nurses note and vital signs reviewed and patient is not hypoxic. General: The patient appears well and in no apparent distress. Patient is resting comfortably on cart. Skin: Warm, dry, no pallor noted. There is no rash noted. Head: Normocephalic, atraumatic Eye: Normal conjunctiva, no drainage Ears, Nose, Mouth, and Throat: oral mucosa is moist. Nares patent. Cardiovascular: Regular Rate and Rhythm Respiratory: Patient is in no distress, no accessory muscle use, lungs are clear to auscultation, no wheezing, rales or rhonchi Back: non-tender GI: Soft and nontender Musculoskeletal: Her left arm is examined. There is no bruise or rash. Fingers have full range of motion and capillary refill is brisk. Radial pulse 2+. She seems to have some discomfort on palpation of the proximal forearm and distal upper arm. Elbow has full range of motion. Neurological: A&O, normal speech Psychiatric: Cooperative Constitutional Vital Signs, click to edit/add: Last Vital Signs Temp 97.9 F 12/15/24 12:30 Pulse 76 12/15/24 12:30 Resp 20 12/15/24 12:30 BP 140/97 H 12/15/24 12:30 Pulse Ox 98 12/15/24 12:44 O2 Del Method Room Air 12/15/24 12:44 Course Vital Signs Vital signs: Vital Signs Temperature 97.9 F 12/15/24 12:30 Pulse Rate 76 12/15/24 12:30 Respiratory Rate 20 12/15/24 12:30 Blood Pressure 140/97 H 12/15/24 12:30 Pulse Oximetry 100 12/15/24 12:30 Oxygen Delivery Method Room Air 12/15/24 12:30 Temperature 97.9 F 12/15/24 12:30 Pulse Rate 76 12/15/24 12:30 Respiratory Rate 20 12/15/24 12:30 Blood Pressure 140/97 H 12/15/24 12:30 Pulse Oximetry 98 12/15/24 12:44 Oxygen Delivery Method Room Air 12/15/24 12:44 Medical Decision Making MDM Narrative Medical decision making narrative: Dopplers negative for DVT. She was counseled to quit smoking and will follow-up with her doctor to determine if she will need to resume her blood thinner. Treatment diagnosis and follow-up were discussed with the patient. Differential Diagnosis Differential Diagnosis: DVT, superficial thrombophlebitis, muscle pain Imaging Data Left arm Doppler: Radiologist's impression: No DVT Discharge Plan Discharge Chief Complaint: Extremity Problem, Nontraumatic Clinical Impression: Arm pain, left Patient Disposition: Home, Self-Care Time of Disposition Decision: 13:09 Condition: Good Mode of Transportation: Private Vehicle Prescriptions / Home Meds: No Action methocarbamol 500 mg tablet 500 mg PO BID levetiracetam 500 mg tablet 500 mg PO BID Print Language: Wallisian Instructions: Arm Pain (ED) Additional Instructions: Follow-up with your physician to determine appropriateness of resuming blood thinner. Please stop smoking. Referrals: GINI TINOCO, SHANELLE [Primary Care Provider] - 1 week
[2024-12-15 12:44] VITALS: O2SAT 98
== END 2024-12-15 13:18 | disposition home or self-care (01) ==
PROVIDERS: Emergency Provider Emergency Medicine; PCP Nurse Practitioner Family
DX: M79.602 Pain in left arm (principal); Z90.49 Acquired absence of other specified parts of digestive tract; Z98.51 Tubal ligation status; F17.200 Nicotine dependence, unspecified, uncomplicated
CPT/HCPCS: 93971; 99284

== ENCOUNTER 2025-03-16 09:55 | Emergency (ER) | payer OTHER, SELFPAY ==
--- OUTSIDE RECORDS SUMMARY | 2025-03-03 09:00 | XMS_ITS | Encounter Summary ---
Author Organization [facility] Address [address], [address] [place] [address] Care Team Providers Care Pipe Crew Foreman Name Role Phone Aury Wayne APRN - CLINICAL CODER Primary Care Provider Reason for Visit * Imaging (Routine) - Closed Specialty Diagnoses / Procedures Referred By Luciano martinez Referred To Contact Radiology Diagnoses Breast pain Mass of breast, unspecified laterality Procedures TUSHAR ZAY DIGITAL DIAGNOSTIC BILATERAL TUSHAR DIGITAL DIAGNOSTIC W OR WO CAD BILATERAL Julianan Kelly MD [address] [place] [address] Phone: tel: fax: Referral ID Status Reason Start Date Expiration Date Visits Re quested Visits Authorized [id number] Closed 02/12/2025 02/12/2026 1 1 Encounter Details Date Type Department Care Team (Latest Contact Info) Description 03/03/2025 9:00 AM EDT - 03/05/2025 11:59 PM EDT Hospital Encounter [facility] Mammography [address] [place] [address] Julianna Kelly MD [address] [place], [place] [id number] Breast pain; Mass of breast, unspecified laterality Discharge Disposition: Home or Self Care Social History Tobacco Use Types Packs/Day Years Used Date Smoking Tobacco: Light Smoker Cigarettes 0.5 10 Smokeless Tobacco: Never Alcohol Use Standard Drinks/Week Comments Yes 6 (1 standard drink = 0.6 oz pur e alcohol) occasionally AUDIT-C Answer Date Recorded Q1: How often do you have a drink containing alcohol? Monthly or less 07/24/2022 Q2: How many drinks containi ng alcohol do you have on a typical day when you are drinking? Patient does not drink Q3: How often do you have si x or more drinks on one occasion? Never 07/24/2022 PHQ-2 Answer Date Recorded PHQ-9 Total Score 0 04/05/2021 Comments No Sex and Gender Information Value Date Recorded Sex Assigned at Not on file Legal Sex Female 2:55 PM EST Gender Identity Not on file Sexual Orientation Not on file documented as of this encounter Last Filed Vital Signs Vital Sign Reading Time Taken Comments Blood Pressure - - Pulse - - Temperature - - Respiratory Rate - - Oxygen Saturation - - Inhaled Oxygen Concentration - - Weight 62.6 kg (138 lb) 03/03/2025 9:44 AM EDT Height 172.7 cm (5' 8 ) 03/03/2025 9:44 AM EDT Body Mass Index 20.98 03/03/2025 9:44 AM EDT documented in this encounter Medications at Time of Discharge furosemide (LASIX) 40 MG tablet Take 1 tablet by mouth daily 90 tablet 3 05/29/2022 buPROPion (WELLBUTRIN SR) 150 MG extended release tablet Take 1 tablet by mouth 2 times daily 60 tablet 5 10/19/2021 ibuprofen (ADVIL;MOTRIN) 600 MG tablet Take 1 tablet by mouth 4 times daily as needed for Pain 360 tablet 1 09/24/2020 busPIRone (BUSPAR) 7.5 MG tablet Take 2 tablets by mouth 2 times daily 05/18/2020 budesonide-formot rohan (SYMBICORT) 160-4.5 MCG/ACT AERO Inhale 2 puffs into the lungs 2 times daily 1 Inhaler 02/19/2020 montelukast (SINGULAIR) 10 MG tablet Take 1 tablet by mouth daily 30 tablet 3 02/19/2020 albuterol sulfate HFA (VENTOLIN HFA) 108 (90 Base) MCG/ACT inhaler Inhale 2 puffs into the lungs 4 times daily as needed for Wheezing 3 Inhaler 1 02/15/2020 aspirin EC 81 MG EC tablet Take 1 tablet by mouth daily 30 tablet 12/09/2019 documented as of this encounter Plan of Treatment Not on file documented as of this encounter Procedures Procedure Name Priority Date/Time Associated Diagnosis Comments [facility] DIGITAL DIAGNOSTIC BILATERAL Routine 03/03/2025 9:49 AM EDT Breast pain Mass of breast, unspecified laterality documented in this encounter Results * [facility] DIGITAL DIAGNOSTIC BILATERAL (03/03/2025 9:49 AM EDT) Anatomical Region Laterality Modality Breast Bilateral Mammography 03/03/2025 10:2 3 AM EDT Impressions 03/03/2025 10:25 AM EDT Benign findings. No mammographic or ultrasonographic evidence of malignancy. BIRADS: BIRADS - CATEGORY 2 Benign Findings. Normal interval follow-up is recommended in 12 months. OVERALL ASSESSMENT - BENIGN A letter of notification will be sent to the patient regarding the results. The [employer] recommends annual mammograms for women 40 years and older. Performing Facility: [facility] [address] [place] [address]. [address] [place] [address] Narrative 03/03/2025 10:25 AM EDT EXAMINATION: DIAGNOSTIC DIGITAL BILATERAL BREASTS MAMMOGRAM WITH TOMOSYNTHESIS; TARGETED ULTRASOUND OF THE LEFT BREAST; TARGETED ULTRASOUND OF THE RIGHT BREAST, 03/03/2025 9:23 am TECHNIQUE: Diagnostic mammography of the bilateral breasts was performed with tomosynthesis. 2D standard and 3D tomosynthesis combination imaging performed through both breasts. Computer aided detection was utilized in the interpretation of this exam.; Target ultrasound of the left breast was performed.; Targeted ultrasound of the right breast was performed. Views: COMPARISON: Baseline study HISTORY: ORDERING SYSTEM PROVIDED HISTORY: Breast pain TECHNOLOGIST PROVIDED HISTORY: breast pain/feeling lump Is the patient ?->No FINDINGS: Mammogram: The breasts are extremely dense which lowers the sensitivity of mammography. No dominant mass, architectural distortion or concerning grouping of microcalcifications either breast. Ultrasound: Right breast: Fibrocystic tissue primarily retroareolar right breast with no solid or cystic suspicious mass demonstrated. Mildly prominent right axillary lymph node with overall benign by ultrasound features. Left breast: Scattered fibrocystic changes left breast. Benign by ultrasound appearing lymph nodes left axilla. Julianna Kelly MD IMG MAMMOGRAPHY ORDERABLES Fin al Result documented in this encounter Visit Diagnoses Diagnosis Breast pain Mastodynia Mass of breast, unspecified laterality documented in this encounter Care Teams Pipe Crew Foreman Relationship Specialty Start Date End Date Aury Wayne, POWER BRAKE REBUILDER - CLINICAL CODER [address] [place] [address] PCP - General 06/01/20 documented as of this encounter
--- OUTSIDE RECORDS SUMMARY | 2025-03-03 09:20 | XMS_ITS | Encounter Summary ---
Author Organization [facility] Address [address], [address] [place] [address] Care Team Providers Care Ground Instructor Advanced Name Role Phone Tone Aury L BUSINESS AND FINANCIAL COUNSEL - AUTOMATIC ENGRAVER Primary Care Provider Reason for Referral * Imaging (Routine) - Open Specialty Diagnoses / Procedures Referred By Luciano martinez Referred To Contact Radiology Diagnoses Hx of deep venous thrombosis Axillary lymphadenopathy Breast pain Mass of breast, unspecified laterality Procedures US BREAST LIMITED RIGHT Julianna Kelly MD [address] [place] [address] Phone: tel: fax: Referral ID Status Reason Start Date Expiration Date Visits Re quested Visits Authorized [id number] Open 02/05/2025 02/05/2026 1 1 Reason for Visit * Imaging (Routine) - Open Specialty Diagnoses / Procedures Referred By Luciano martinez Referred To Contact Radiology Diagnoses Hx of deep venous thrombosis Axillary lymphadenopathy Breast pain Mass of breast, unspecified laterality Procedures US BREAST LIMITED RIGHT Julianna Kelly MD [address] [place] [address] Phone: tel: fax: Referral ID Status Reason Start Date Expiration Date Visits Re quested Visits Authorized [id number] Open 02/05/2025 02/05/2026 1 1 Encounter Details Date Type Department Care Team (Latest Contact Info) Description 03/03/2025 9:20 AM EDT - 03/05/2025 11:59 PM EDT Hospital Encounter [facility] Mammography [address] [place] [address] Julianna Kelly MD [address] [place] [address] Hx of deep venous thrombosis; Axillary lymphadenopathy; Breast pain; Mass of breast, unspecified laterality [...] on file documented as of this encounter Medications at Time of Discharge [...] Procedure Name Priority Date/Time Associated Diagnosis Comments US BREAST LIMITED RIGHT Routine 03/03/2025 10:10 AM EDT Hx of deep venous thrombosis Axillary lymphadenopathy Breast pain Mass of breast, unspecified laterality documented in this encounter Results * US BREAST LIMITED RIGHT (03/03/2025 10:10 AM EDT) Anatomical Region Laterality Modality Breast Right Ultrasound 03/03/2025 10:2 3 AM EDT Impressions 03/03/2025 10:25 AM EDT Benign findings. No mammographic or ultrasonographic evidence of malignancy. BIRADS: BIRADS - CATEGORY 2 Benign Findings. Normal interval follow-up is recommended in 12 months. OVERALL ASSESSMENT - BENIGN A letter of notification will be sent to the patient regarding the results. The [employer] recommends annual mammograms for women 40 years and older. Narrative 03/03/2025 10:25 AM EDT EXAMINATION: DIAGNOSTIC [...] by ultrasound appearing lymph nodes left axilla. us Julianna Kelly MD IMG US ORDERABLES Final Result documented in this encounter Visit Diagnoses Diagnosis Hx of deep venous thrombosis Personal history of venous thrombosis and embolism Axillary lymphadenopathy Enlargement of lymph nodes Breast pain Mastodynia Mass of breast, unspecified laterality documented in this encounter Care Teams Ground Instructor Advanced Relationship Specialty Start Date End Date Aury Wayne, BUSINESS AND FINANCIAL COUNSEL - AUTOMATIC ENGRAVER [address] [place] [address] PCP - General 06/01/20 documented as of this encounter
--- OUTSIDE RECORDS SUMMARY | 2025-03-03 09:58 | XMS_ITS | Encounter Summary ---
Author Organization [facility] Address [address], [address] [place] [address] Care Team Providers Care Application Operations Engineer Name Role Phone ToneAury castillo Qiana STEAMFITTER - BALLASTER Primary Care Provider Reason for Referral * Imaging (Routine) - Open Specialty Diagnoses / Procedures Referred By Contac t Referred To Contact Radiology Diagnoses Palpable mass of breast Procedures US BREAST LIMITED LEFT Julianna Kelly MD [address] [place] [address] Phone: tel: fax: Referral ID Status Reason Start Date Expiration Date Visits Re quested Visits Authorized [id number] Open 03/03/2025 03/03/2026 1 1 Reason for Visit * Imaging (Routine) - Open Specialty Diagnoses / Procedures Referred By Luciano t Referred To Contact Radiology Diagnoses Palpable mass of breast Procedures US BREAST LIMITED LEFT Julianna Kelly MD [address] [place] [address] Phone: tel: fax: Referral ID Status Reason Start Date Expiration Date Visits Re quested Visits Authorized [id number] Open 03/03/2025 03/03/2026 1 1 Encounter Details Date Type Department Care Team (Latest Contact Info) Description 03/03/2025 9:58 AM EDT - 03/05/2025 11:59 PM EDT Hospital Encounter [facility] Mammography [address] [place] [address] Julianna Kelly MD [address] [place] [address] Palpable mass of breast Discharge Disposition: Home or Self Care Social [...] Date/Time Associated Diagnosis Comments US BREAST LIMITED LEFT Routine 03/03/2025 10:11 AM EDT Palpable mass of breast documented in this encounter Results * US BREAST LIMITED LEFT (03/03/2025 10:11 AM EDT) Anatomical Region Laterality Modality Breast Left Ultrasound 03/03/2025 10:2 3 AM EDT Impressions 03/03/2025 10:25 AM EDT Benign findings. No mammographic or ultrasonographic evidence of malignancy. BIRADS: BIRADS - CATEGORY 2 Benign Findings. Normal interval follow-up is recommended in 12 months. OVERALL ASSESSMENT - BENIGN A letter of notification will be sent to the patient regarding the results. The [employer] recommends annual mammograms for [...] documented in this encounter Visit Diagnoses Diagnosis Palpable mass of breast documented in this encounter Care Teams Application Operations Engineer Relationship Specialty Start Date End Date Aury Wayne, STEAMFITTER - BALLASTER [address] [place] [address] PCP - General 06/01/20 documented as of this encounter
[2025-03-16] VITALS (12 sets, daily range): BP systolic 123–139; BP diastolic 87–100; PULSE 57–84; TEMP 36.7; O2SAT 92–99; BMI 20.7
--- NOTE | 2025-03-16 10:00 | XR_ITS ---
The [address] [address] Patient Name: SUKUMAR BULLOCK MRN: [id number] date: 1985 Sex: F Assigned Patient Location: ED.MAIN Current Patient Location: ED.MAIN Accession/Order Number: [id number] Exam Date: 03/16/2025 10:15 Report Date: 03/16/2025 10:39 At the request of: AZAEL SAMANIEGO MD Procedure: XR chest 1V PORTABLE AP ERECT CHEST 200 hours CLINICAL HISTORY: Chest pain COMPARISON: None The heart is within normal limits. There is no vascular congestion. No consolidation is identified. There is no effusion or pneumothorax. The osseous structures are intact. XR/XR chest 1V IMPRESSION: NO ACUTE FINDINGS Impression dictated by: Magaly Avalos M.D. 03/16/2025 10:39 AM Dictation Location: [place] [address] Electronically authenticated by: [id number] Y Date: 03/16/2025 10:39
--- NOTE | 2025-03-16 10:00 | ECG_ITS ---
The [facility] Test Date: 2025-03-16 Pat Name: SUKUMAR BULLOCK Department: Room: - Gender: Female Certifier: : 1985 Requested By: [id number] Order Number: [id number] Reading MD: LUANNE JUSTIN Measurements Intervals Dorena Rate: 77 P: 79 CO: 114 QRS: 80 QRSD: 74 T: 64 QT: 388 QTc: 420 Interpretive Statements 1100 Sinus rhythm Short CO interval 6120 Possible right atrial enlargement 9130 borderline ECG Compared to ECG 12/24/2023 03:57:24 No significant changes Electronically Signed On 03-16-2025 16:51:40 EDT by LUANNE JUSTIN
--- OUTSIDE RECORDS SUMMARY | 2025-03-16 10:02 | XMS_ITS | Encounter Summary ---
Author Organization [facility] tem Address [id number] [address] [place] [address] Care Team Providers Care Counter Roller Name Role Phone Aury Wayne APRN-NETWORK SECURITY ADMINISTRATOR Primary Care Provide r Encounter Details Date Type Department Care Team (Late st Contact Info) Description 08/03/2021 Telephone [facility] Division of [facility] - Medical Oncology [address] [place] [phone] [facility] [address] [place] [address] Social History Tobacco Use Types Packs/Day Years [...] documented as of this encounter Care Teams Counter Roller Relationship Specialty Start Date End Date Aury Wayne APRN-SHANELLE [address] [place] [address] PCP - General Family Medicine 10/30/24 documented as of this encounter
--- OUTSIDE RECORDS SUMMARY | 2025-03-16 10:02 | XMS_ITS | Encounter Summary ---
Author Organization [facility] Address [address], [address] [place] [address] Care Team Providers Care Nurse Care Manager Name Role Phone Aury Wayne DEHYDROGENATION SUPERVISOR - PIT LABORER Primary Care Provider Reason for Visit * Reason Comments Medication Refill Encounter Details Date Type Department Care Team (Late st Contact Info) Description 01/21/2021 Refill Arthur Herbert MD [address] [place] [address] [place] [address] Tristan Guallpa MD [address] [place] [address] [place] [address] Medication Refill Social History Tobacco Use Types Packs/Day Years Used Date Smoking Tobacco: Light Smoker Cigarettes 0.5 10 Smokeless Tobacco: Never Alcohol Use Standard Drinks/Week Comments Yes 6 (1 standard drink = 0.6 oz pur e alcohol) occasionally AUDIT-C Answer Date Recorded Q1: How often do you have a drink containing alc ohol? Never 12/09/2019 Average Number of Drinks Not on file 020 Q3: How often do you have si x or more drinks on one occasion? Never 12/09/2019 PHQ-2 Answer Date Recorded PHQ-9 Total Score 0 02/19/2020 Comments No Sex and Gender Information Value [...] Onset Date Last Indicated Resolved Time COVID-19 (Rule Out) 09/14/2021 09/14/2021 09/16/19 22 11:42 AM EDT documented as of this encounter Care Teams Nurse Care Manager Relationship Specialty Start Date End Date Aury Wayne, DEHYDROGENATION SUPERVISOR - PIT LABORER [address] [place] [address] PCP - General 06/01/20 documented as of this encounter
--- OUTSIDE RECORDS SUMMARY | 2025-03-16 10:02 | XMS_ITS | Encounter Summary ---
Author Organization [facility] Address [id number] [address] [place] [address] Care Team Providers Care Electrode Turner And Finisher Name Role Phone Chiquita Waynemike Singh MOVEMENT THERAPIST-COIL WINDING SUPERVISOR Primary Care Provide r Encounter Details Date Type Department Care Team (Late st Contact Info) Description 12/31/2023 Orders Only [facility] [address] [place] [address] External, Scanning Provider Social History Tobacco Use Types Packs/Day Years Used Date Smoking Tobacco: Every Day Cigarettes 0.5 11.7 Started: 2013 Smokeless Tobacco: Never Alcohol Use [...] documented as of this encounter Care Teams Electrode Turner And Finisher Relationship Specialty Start Date End Date Aury Wayne, MOVEMENT THERAPIST-COIL WINDING SUPERVISOR [address] [place] [address] PCP - General Family Medicine 10/30/24 documented as of this encounter
--- OUTSIDE RECORDS SUMMARY | 2025-03-16 10:02 | XMS_ITS | Encounter Summary ---
Author Organization [facility] Address [id number] [address] [place] [address] Care Team Providers Care Planning Associate Name Role Phone Tone, Aury Singh APRN-ARCADE TECHNICIAN Primary Care Provide r Encounter Details Date Type Department Care Team (Late st Contact Info) Description 12/24/2023 Orders Only [facility] [address] [place] [address] External, Scanning Provider Pain (Primary Dx) Social History Tobacco Use Types Packs/Day Years Used Date Smoking Tobacco: Every Day Cigarettes 0.5 11.7 Started: 2013 Smokeless Tobacco: Never Alcohol Use Standard Drinks/Week Comments Yes 0 (1 standard drink = 0.6 oz pur e alcohol) Occasional [facility] Utilities Answer Date Recorded In the [...] on file documented as of this encounter Functional Status * Question Answer Date of Assessment Author Functional Status Independent 12/25/2023 3:51 PM EDT Olga Darling RN * Audit-C Score Answer Date of Assessment Author 3 12/24/2023 4:02 PM EDT America Barnett RN * Question Answer Date of Assessment Author Q1: How often do you have a drink containing alcohol? 2-4 times a month 12/24/2023 4:02 PM VALERIAT America Barnett RN Q2: How many drinks containing alcohol do you have on a typical day when you are drinking? 3 or 4 12/24/2023 4:02 PM EDT America Barnett RN Q3: How often do you have six or more drinks on one occasion? Never 12/24/2023 4:02 PM VALERIAT America Barnett RN documented as of this encounter Plan of Treatment Not on file documented as of this encounter Goals Goal Patient Goal Type Associated Problems Recent Progress Patient-Stated? Author home General Yes Olga Darling RN Note: Evaluation of progress towards goal: home self care documented as of this encounter Results * CT abdomen and pelvis with contrast (12/24/2023 12:15 AM EDT) us Scanning Provider External IMG CT ORDERABLES Fin al Result documented in this encounter Visit Diagnoses Diagnosis Pain- Primary Generalized pain documented in this encounter Additional Health Concerns Infection Onset Date Last Indicated Resolved Time COVID-19 Rule-Out 06/12/2024 06/12/2024 06/12/2024 7:00 AM EST Assessment Noted Time PHQ-9 Depression Total Score: 0 12/24/19 4:04 PM EDT documented as of this encounter Care Teams Planning Associate Relationship Specialty Start Date End Date Aury Wayne APRN-SHANELLE [address] [place] [address] PCP - General Family Medicine 10/30/24 documented as of this encounter
--- OUTSIDE RECORDS SUMMARY | 2025-03-16 10:02 | XMS_ITS | Encounter Summary ---
Author Organization [facility] Address [address], [address] [place] [address] Care Team Providers Care Signals Collector/Analyst Name Role Phone Aury Wayne APRN, NP Primary Care Provider Reason for Referral * Imaging (Routine) - Closed Specialty Diagnoses / Procedures Referred By Luciano martinez Referred To Contact Radiology Diagnoses Amenorrhea Procedures US PELVIS COMPLETE Aury Wayne APRN - NP [address] [place] [address] Phone: tel: fax: Referral ID Status Reason Start Date Expiration Date Visits Re quested Visits Authorized [id number] Closed 04/06/2021 03/31/2022 1 1 Encounter Details Date Type Department Care Team (Latest Contact Info) Description 03/31/2021 Transcribe Orders [facility] [address] [place] [address] Aury Wayne APRN - NP [address] [place] [address] Amenorrhea (Primary Dx) Social History Tobacco Use Types [...] have Coronavirus / COVID-19? No / Unsure 03/31/2021 12:26 PM EDT documented as of this encounter Plan of Treatment Not on file documented as of this encounter Results * US PELVIS COMPLETE (04/06/2021 11:28 AM EDT) Anatomical Region Laterality Modality Abdomen, Pelvis, Hip Ultrasound 04/06/2021 11:3 0 AM EDT Impressions 04/06/2021 11:48 AM EDT *Left ovarian indeterminate benign-appearing cyst as measured above, please see follow-up guidelines below. *Otherwise negative pelvic ultrasound. RECOMMENDATIONS: 2 cm indeterminate ovarian cyst. Recommend pelvic US follow-up in 6-12 weeks; if unchanged, continue follow-up with US OR MRI with IV contrast - if follow-up studies do not confirm endometrioma or dermoid, consider surgical evaluation. Reference: Radiology 2010 Mar;256(3):943-54 Narrative 04/06/2021 11:48 AM EDT EXAMINATION: PELVIC ULTRASOUND 04/06/2021 TECHNIQUE: Transabdominal and transvaginal pelvic ultrasound was performed. COMPARISON: None HISTORY: ORDERING SYSTEM PROVIDED HISTORY: Amenorrhea FINDINGS: Measurements: Uterus: 10.2 x 4.3 x 5.4 cm Endometrial stripe: 1.8 cm Right Ovary:2.5 x 1.2 x 2.0 cm Left Ovary: 3.2 x 2.1 x 2.8 cm Ultrasound Findings: Uterus: Uterus demonstrates normal myometrial echotexture. Endometrial stripe: Endometrial stripe is upper limits normal thickness, please correlate with phase of menstrual cycle. Right Ovary: Right ovary is within normal limits. Left Ovary: Left ovary indeterminate 2 cm cyst with centrally is primarily anechoic and peripherally is heterogeneous slightly thickened wall. Free Fluid: No evidence of free fluid. Procedure Note Stephanie Curry MD - 04/06/2021 EXAMINATION: PELVIC ULTRASOUND 04/06/2021 TECHNIQUE: Transabdominal and transvaginal pelvic ultrasound was performed. COMPARISON: None HISTORY: ORDERING SYSTEM PROVIDED HISTORY: Amenorrhea FINDINGS: Measurements: Uterus: 10.2 x 4.3 x 5.4 cm Endometrial stripe: 1.8 cm Right Ovary:2.5 x 1.2 x 2.0 cm Left Ovary: 3.2 x 2.1 x 2.8 cm Ultrasound Findings: Uterus: Uterus demonstrates normal myometrial echotexture. Endometrial stripe: Endometrial stripe is upper limits normal thickness, please correlate with phase of menstrual cycle. Right Ovary: Right ovary is within normal limits. Left Ovary: Left ovary indeterminate 2 cm cyst with centrally isprimarily anechoic and peripherally is heterogeneous slightly thickened wall. Free Fluid: No evidence of free fluid. IMPRESSION: *Left ovarian indeterminate benign-appearing cyst as measured above,please see follow-up guidelines below. *Otherwise negative pelvic ultrasound. RECOMMENDATIONS: 2 cm indeterminate ovarian cyst. Recommend pelvic US follow-up in 6-12 weeks; if unchanged, continue follow-up with US OR MRI with IV contrast -if follow-up studies do not confirm endometrioma or dermoid, considersurgical evaluation. Reference: Radiology 2010 Mar;256(3):943-54 us Aury Fernandez NP [facility] US ORDERABLES Final Result documented in this encounter Visit Diagnoses Diagnosis Amenorrhea- Primary Absence of menstruation Amenorrhea Absence of menstruation documented in this encounter Additional Health Concerns Infection Onset Date Last Indicated Resolved Time COVID-19 (Rule Out) 09/14/2021 09/14/2021 09/16/19 22 11:42 AM EDT documented as of this encounter Care Teams Signals Collector/Analyst Relationship Specialty Start Date End Date Aury Wayne APRN - NP [address] [place] [id number] PCP - General 06/01/20 documented as of this encounter
--- OUTSIDE RECORDS SUMMARY | 2025-03-16 10:02 | XMS_ITS | Clinical Summary ---
Author Organization [facility] Address [address], [address] [place] [address] Care Team Providers Care Over The Road Driver Name Role Phone ToneAury Qiana EXCEPTIONAL CHILDREN TEACHER - STAVE MILL HAND Primary Care Provider Allergies Active Allergy Reactions Criticality Noted Date Comments Latex Hives High 08/26/2013 Metoclopramide Anaphylaxis,Other (See Comments) High 08/26/2013 bradycardia Medications aspirin EC 81 MG EC tablet Take 1 tablet by mouth daily 30 tablet 12/09/2019 Active albuterol sulfate HFA (VENTOLIN HFA) 108 (90 Base) MCG/ACT inhaler Inhale 2 puffs into the lungs 4 times daily as needed for Wheezing 3 Inhaler 1 02/15/2020 Active budesonide-form oterol (SYMBICORT) 160-4.5 MCG/ACT AERO Inhale 2 puffs into the lungs 2 times daily 1 Inhaler 02/19/2020 Active montelukast (SINGULAIR) 10 MG tablet Take 1 tablet by mouth daily 30 tablet 3 02/19/2020 Active busPIRone (BUSPAR) 7.5 MG tablet Take 2 tablets by mouth 2 times daily 05/18/2020 Active ibuprofen (ADVIL;MOTRIN) 600 MG tablet Take 1 tablet by mouth 4 times daily as needed for Pain 360 tablet 1 09/24/2020 Active buPROPion (WELLBUTRIN SR) 150 MG extended release tablet Take 1 tablet by mouth 2 times daily 60 tablet 5 10/19/2021 Active furosemide (LASIX) 40 MG tablet Take 1 tablet by mouth daily 90 tablet 3 05/29/2022 Active Active Problems Problem Noted Date Diagnosed Date Axillary lymphadenopathy 02/05/2025 Primary hypertension 11/22/2020 Mild persistent asthma without complication 09/30 Hx of deep venous thrombosis 09/19/2020 Chest wall pain 08/18/2020 Left arm pain 08/18/2020 Seizure disorder 07/27/2020 Anxiety disorder 04/21/2020 Opioid dependence 04/21/2020 Hoarse 01/15/2019 Duodenitis 06/13/2018 Spells of decreased attentiveness 12/17/2017 Acute conjunctivitis of right eye 08/27/2017 Endometrial polyp Resolved Problems Problem Noted Date Diagnosed Date Resolved Date Community acquired bilateral lower lobe pneumonia 07/27/2020 07/30/2020 Common bile duct dilatation 07/27/2020 07/30/2020 Nausea and vomiting 07/26/2020 07/30/19 21 Encounters Date Type Department Care Team Description 03/03/2025 9:58 AM EDT - 03/05/2025 11:59 PM EDT Hospital Encounter [facility] Mammography [address] [place] [address] Julianna Kelly MD Palpable mass of breast Discharge Disposition: Home or Self Care 03/03/2025 9:20 AM EDT - 03/05/2025 11:59 PM EDT Hospital Encounter [facility] Mammography [address] [place] [address] Julianna Kelly MD Hx of deep venous thrombosis; Axillary lymphadenopathy; Breast pain; Mass of breast, unspecified laterality Discharge Disposition: Home or Self Care 03/03/2025 9:00 AM EDT - 03/05/2025 11:59 PM EDT Hospital Encounter [facility] Mammography [address] [place] [address] Julianna Kelly MD Breast pain; Mass of breast, unspecified laterality Discharge Disposition: Home or Self Care 02/05/2025 2:00 PM EDT Office Visit [facility] Part of [address] [phone] Julianna Kelly MD Hx of deep venous thrombosis (Primary Dx); Axillary lymphadenopathy; Breast pain; Mass of breast, unspecified laterality from Last 3 Months Immunizations Immunization Administration Dates Next Due TDaP, ADACEL (age 10y-64y), BOOSTRIX (age 10y+), IM, 0.5mL 01/27/2021,2006 Family History Medical History Relation Name Comments No Known Problems Brother No Known Problems Father Colon Cancer Maternal Grandfather Heart Attack Maternal Grandfather Diabetes Maternal Grandmother Stroke Maternal Grandmother Diabetes Mother Heart Attack Mother she was 36 Heart Disease Mother High Blood Pressure Mother Lupus Mother Other Mother fibromyalgia Stroke Mother Heart Disease Sister 1 Pacemaker Sister 1 Stroke Sister 1 had 2, around 1 9 and 20 Diabetes Sister 2 Hypertension Sister 2 Breast Cancer Neg Hx mat great gran dma Relation Name Status Comments Brother Alive Father Maternal Grandfather Alive Maternal Grandmother Alive Mother Sister 1 Alive Sister 2 Alive Social History Tobacco Use Types Packs/Day Years Used Date Smoking Tobacco: Light Smoker Cigarettes 0.5 10 Smokeless Tobacco: Never Tobacco Cessation:Ready to Q uit: Not Asked; Counseling Given: Not Answered Alcohol Use Standard Drinks/Week Comments Yes 6 [...] Sign Reading Time Taken Comments Blood Pressure 111/70 02/05/2025 2:05 PM EDT Pulse 84 02/05/2025 2:05 PM EDT Temperature 36.6 C (97.9 F) 02/05/2025 2:05 PM EDT Respiratory Rate 16 02/05/2025 2:05 PM EDT Oxygen Saturation 97% 11/27/2022 3:49 PM EDT Inhaled Oxygen Concentration - - Weight 62.6 kg (138 lb) 03/03/2025 9:44 AM EDT Height 172.7 cm (5' 8 ) 03/03/2025 9:44 AM EDT Body Mass Index 20.98 03/03/2025 9:44 AM EDT Plan of Treatment Health Maintenance Due Date Last Done Comments Depression Screen 1999 Varicella vaccine (1 of 2 - 13+ 2-dose series) 2000 Hepatitis B vaccine (1 of 3 - 19+ 3-dose series) 2006 Pneumococcal 0-49 years Vaccine (2 of 2 - PCV) 08/21/2021 08/21/2020 Pap smear 04/05/2024 04/05/2021, 01/27/2016 Flu vaccine (#1) 01/30/2025 COVID-19 Vaccine ( season) 2025 Cervical cancer screen 04/05/2026 HPV (without or with Pap) 04/05/2026 04/05/2021 DTaP/Tdap/Td vaccine (10 - Td or Tdap) 04/17/2032 04/17/2022, 01/27/2021, 08/21/2020, Additional history exists Hib vaccine Completed 04/23/1990 Polio vaccine Completed 03/25/1993, 05/02, 11/21/1988, Additional history exists HIV screen Completed 12/10/2017, 09/13/2009 Hepatitis C screen Completed 07/13/2020, 1 , 04/28/2019, Additional history exists Lipids Discontinued 09/26/2021, 04/01, 06/02/2020, Additional history exists HPV vaccine (No Doses Required) Completed Hepatitis A vaccine Aged Out No longe r eligible based on patient's age to complete this topic Meningococcal (ACWY) vaccine Aged Out No longer eligible based on patient's age to complete this topic Meningococcal B vaccine Aged Out No l onger eligible based on patient's age to complete this topic Procedures Procedure Name Priority Date/Time Associated Diagnosis Comments US BREAST LIMITED LEFT Routine 03/03/2025 10:11 AM EDT Palpable mass of breast US BREAST LIMITED RIGHT Routine 03/03/2025 10:10 AM EDT Hx of deep venous thrombosis Axillary lymphadenopathy Breast pain Mass of breast, unspecified laterality TUSHAR ZAY DIGITAL DIAGNOSTIC BILATERAL Routine 03/03/2025 9:49 AM EDT Breast pain Mass of breast, unspecified laterality LIPID, FASTING Routine 09/26/2021 10:40 AM EDT HPV, HIGH RISK Routine 04/05/2021 8:06 AM EDT PAP SMEAR Routine 04/05/2021 8:06 AM EDT HEPATITIS C RNA, QUANTITATIVE, PCR Routine 07/13/2020 11:23 AM EST HIV SCREEN Routine 12/10/2017 4:41 PM EDT Screening examination for sexually transmitted disease from Last 3 Months or Most Recently Relevant to Health Maintenance Results * US BREAST LIMITED LEFT (03/03/2025 [...] to the patient regarding the results. [employer] recommends annual mammograms for [...] Kelly MD IMG US ORDERABLES Final Result * US BREAST LIMITED RIGHT (03/03/2025 10:10 [...] to the patient regarding the results. [employer] recommends annual mammograms for [...] lymph nodes left axilla. Julianna Kelly MD [facility] US ORDERABLES Final Result * [facility] ZAY DIGITAL DIAGNOSTIC BILATERAL (03/03/2025 9:49 AM [...] to the patient regarding the results. [employer] recommends annual mammograms for women 40 years and older. Performing Facility: [facility] [address] [place] [address]. [address] [place] [address] Narrative 03/03/2025 10:25 AM EDT EXAMINATION: DIAGNOSTIC [...] lymph nodes left axilla. Julianna Kelly MD [facility] MAMMOGRAPHY ORDERABLES Fin al Result * Lipid, Fasting (09/26/2021 10:40 AM EDT) Cholesterol, Fasting 173 <200 mg/dL 09/26/2021 10:40 AM EDT [facility] Comment: Cholesterol Guidelines: <200 Desirable 200-240 Borderline >240 Undesirable HDL 43 >40 mg/dL 09/26/2021 10:40 AM EDT [facility] Comment: HDL Guidelines: <40 Undesirable 40-59 Borderline >59 Desirable LDL Cholesterol 109 0 - 130 mg/dL 09/26/2021 10:40 AM EDT [facility] Comment: LDL Guidelines: <100 Desirable 100-129 Near to/above Desirable 130-159 Borderline >159 Undesirable Direct (measured) LDL and calculated LDL are not interchangeable tests. Chol/HDL Ratio 4.0 <5 09/26/2021 10:40 AM EDT [facility] Comment: Triglyceride, Fasting 104 <150 mg/dL 09/26/2021 10:40 AM EDT [facility] Comment: Triglyceride Guidelines: <150 Desirable 150-199 Borderline 200-499 High >499 Very high Based on AHA Guidelines for fasting triglyceride, April 2012. 09/26/2021 10:4 0 AM EDT 09/26/2021 12:59 PM EDT Aury Wayne EXCEPTIONAL CHILDREN TEACHER - STAVE MILL HAND CHEMISTRY ORDERABLES Fi nal Result [facility] [address] [place] [address], [facility] [phone] * HPV, High Risk (04/05/2021 8:06 AM EDT) HPV Specimen Type CERVIX [facility] HPV, Genotype 16 Negative Negative [facility] HPV, Genotype 18 Negative Negative [facility] Other HR HPV Genotypes Negative Negative [facility] Comment: NOTE Test methodology is real-time PCR utilizing hydrolysis probes with the LetsWombat Mariah 4800 system. The test individually identifies genotypes 16 and 18 while simultaneously detecting 12 other high risk HPV genotypes (31,33,35,39,45,51,52,56,58,59,66 and 68). The expected result is negative. A negative result does not rule out the presence of an HPV genotype not included in the test panel, a low level of infection or specimen sampling error. The Kun Mariah HPV test has been validated for only cervical specimens collected by a clinician using an endocervical brush/spatula and placed in ThinPrep PreservCyt solution. If other specimen sourcesare tested, results must be interpreted in conjunction with cytology and clinical evaluation of the patient and patient history. Performed at [facility] [address] [address] 04/05/2021 8:06 AM EDT 04/07/2021 8:06 AM EDT Narrative [facility] - 04/08/2021 3:10 PM EDT Ordering Provider: JENNIFER EDMONDSON Jennifer Edmondson EXCEPTIONAL CHILDREN TEACHER - CNM MICROBIOLOGY - G ENERAL ORDERABLES Final Result [facility] * PAP SMEAR (04/05/2021 8:06 AM EDT) Pathologist [facility] Gynecology Cytology Report -[facility] Comment: Final Cytologic Interpretation ThinPrep Pap Test (Cervical): Satisfactory for evaluation. A transformation zone component is present. SQUAMOUS EPITHELIAL CELL ABNORMALITY A low-grade squamous intraepithelial lesion (LSIL) is present. cjb/04/13/2021 Interpretation performed at [facility], [address] [place] [address], License number: [id number]. Electronically Signed Out By Marilee George MD Date of Last Menstrual Period: 01/03/21 Other Clinical Conditions: Z12.4 Screening for malignant neoplasm of cervix Tubal Ligation Source of Specimen ThinPrep Pap Test (Cervical) Thin Prep Pap (BUSINESS INTEGRATION MANAGER) Fee Code(s): G0145, 74909 The Pap test is a screening test with an inherent, but low, probability of error. The Pap test is primarily effective for the diagnosis and prevention of squamous cell carcinoma. Regular screening is critical for prevention. ThinPrep liquid-based slides, which meet the Facilities Plant Engineer criteria for automated screening, have been screened by the IP [employer] Imaging System (as of 03/18/07) along with an additional manual rescreening by a certified nurse and, if indicated, by a pathologist. [facility] [address] [place] [address] CLIA No. [id number] CAP Accreditation No. [id number] Stencil Cutter: Darnell Trujillo M.D. 04/05/2021 8:06 AM EDT 04/07/2021 8:06 AM EDT Narrative -[facility] - 04/08/2021 3:10 PM EDT Ordering Provider: JENNIFER EDMONDSON Jennifer Edmondson EXCEPTIONAL CHILDREN TEACHER - CNM PATHOLOGY/CYTOLO GY ORDERABLES Final Result [facility] * Hepatitis C RNA, quantitative, PCR (07/13/2020 11:23 AM EST) Specimen Description .PLASMA 07/13/2020 11:23 AM EST [facility] Special Requests NOT REPORTED 07/13/2020 11:23 AM EST [facility] Direct Exam HCV RNA NOT DETECTED This test is a sensitive method for quantitating HCV RNA viral loads in plasma. It utilizes RT-PCR in the FDA approved Kun Ampliprep/Taqman 48 System. This test is intended for detecting and quantifying HCV RNA viral loads in the range of 15 IU/mL to 100,000,000 IU/mL (1.18 log IU/mL to 8.00 log IU/mL). Patients should have confirmed HCV infection prior to RNA quantification. This test has been developed to monitor disease progression and efficacy of anti-HCV drug therapy. This test has been optimized for HCV genotypes 1-6. 07/13/2020 11:23 AM Antengo Blood Plasma 07/13/2020 11:2 3 AM EST 07/13/2020 1:18 PM EST Aury Wayne EXCEPTIONAL CHILDREN TEACHER - STAVE MILL HAND IMMUNOLOGY ORDERABLES F inal Result [facility] [address] [place] [address], [facility] [phone] * HIV Screen (12/10/2017 4:41 PM EDT) HIV Ag/Ab NONREACTIVE NR 12/10/2017 10:45 PM EDT [facility] Comment: No laboratory evidence of HIV infection. If acute HIV infection is suspected, consider testing for HIV-1 RNA. Performed at [address] [address] ([phone] BLOOD SPECIMEN / Unknown 12/10/2017 4:41 PM EDT 12/10/2017 4:42 PM EDT Jennifer Edmondson EXCEPTIONAL CHILDREN TEACHER - CNM IMMUNOLOGY ORDER ERLINDA Final Result [facility] [address] [place] [address], [facility] [phone] [address], [facility] [phone] from Last 3 Months or Most Recently Relevant to Health Maintenance Insurance [facility] [place] [address] [place] [address] [place] [address] [place] [address] Advance Directives * Full Code (Latest Code Status on File) Date Activated Date Inactivated Comments 09/16/2021 1:35 PM 09/16/2021 6:42 PM * Full Code Date Activated Date Inactivated Comments 07/27/2020 12:21 AM 07/30/2020 2:48 PM Care Teams Over The Road Driver Relationship Specialty Start Date End Date Aury Wayne APRN - STAVE MILL HAND [address] [place] [address] PCP - General 06/01/20
--- OUTSIDE RECORDS SUMMARY | 2025-03-16 10:02 | XMS_ITS | Encounter Summary ---
Author Organization [facility] Address [address], [address] [place] [address] Care Team Providers Care Geothermal Operating Engineer Name Role Phone Aury Wayne APRN, NP Primary Care Provider Reason for Referral * Imaging (Routine) - Closed Specialty Diagnoses / Procedures Referred By Luciano martinez Referred To Contact Radiology Diagnoses Other intra-abdominal and pelvic swelling, mass and lump Procedures US ABDOMEN LIMITED Aury Wayne APRN - NP [address] [place] [address] Phone: tel: fax: Referral ID Status Reason Start Date Expiration Date Visits Re quested Visits Authorized [id number] Closed 11/08/2021 11/08/2022 1 1 Encounter Details Date Type Department Care Team (Latest Contact Info) Description 11/08/2021 Transcribe Orders [facility] [address] [place] [address] Aury Wayne APRN - NP [address] [place] [address] Other intra-abdominal and pelvic swelling, mass and lump (Primary Dx) Social History Tobacco Use Types [...] Exposure Response Date Recorded In the last 10 days, have yo u been in contact with someone who was confirmed or suspected to have Coronavirus/COVID-19? No / Unsure 10/18/2021 10:53 AM EDT documented as of this encounter Plan of Treatment Not on file documented as of this encounter Results * US ABDOMEN LIMITED Specify organ? (GROIN) (12/23/2021 5:36 PM EDT) Anatomical Region Laterality Modality Abdomen Ultrasound 12/23/2021 5:41 PM EDT Impressions 12/23/2021 5:46 PM EDT Prominent lymph nodes right inguinal region may be reactive. No suspicious or aggressive features. Narrative 12/23/2021 5:46 PM EDT EXAMINATION: RIGHT UPPER QUADRANT ULTRASOUND 12/23/2021 5:04 pm COMPARISON: None. HISTORY: ORDERING SYSTEM PROVIDED HISTORY: Other intra-abdominal and pelvic swelling, mass and lump TECHNOLOGIST PROVIDED HISTORY: Specify organ?-> FINDINGS: Ultrasound of the right groin demonstrates prominent lymph nodes largest 17 x 12 x 5. These have retained fatty hilum and uniform hypoechoic thin cortex with no suspicious features. Procedure Note Teddy Moreno DO - 12/23/2021 EXAMINATION: RIGHT UPPER QUADRANT ULTRASOUND 12/23/2021 5:04 pm COMPARISON: None. HISTORY: ORDERING SYSTEM PROVIDED HISTORY: Other intra-abdominal and pelvicswelling, mass and lump TECHNOLOGIST PROVIDED HISTORY: Specify organ?-> FINDINGS: Ultrasound of the right groin demonstrates prominent lymph nodes [id number] x 12 x 5. These have retained fatty hilum and uniform hypoechoic thincortex with no suspicious features. IMPRESSION: Prominent lymph nodes right inguinal region may be reactive. Nosuspicious or aggressive features. us Aury Wayne INSURANCE VERIFICATION SPECIALIST - SLIP COVER MAKER IMG US ORDERABLES Final Result documented in this encounter Visit Diagnoses Diagnosis Other intra-abdominal and pelvic swelling, mass and lump- Primary Other intra-abdominal and pelvic swelling, mass and lump documented in this encounter Care Teams Geothermal Operating Engineer Relationship Specialty Start Date End Date Aury Wayne, INSURANCE VERIFICATION SPECIALIST - SLIP COVER MAKER [address] [place] [id number] PCP - General 06/01/20 documented as of this encounter
--- OUTSIDE RECORDS SUMMARY | 2025-03-16 10:02 | XMS_ITS | Encounter Summary ---
Author Organization [facility] Address [address], [address] [place] [address] Care Team Providers Care Electric Scoop Operator Name Role Phone Aury Wayne BOLOGNA MAKER - MANAGER SPORTS Primary Care Provider Reason for Visit * Reason Comments Medication Refill Encounter Details Date Type Department Care Team (Late st Contact Info) Description 03/08/2021 Refill Arthur Herbert MD [address] [place] [id number] Dereck Briones, CELINA - ELECTRONIC SEMICONDUCTOR PROCESSOR [address] [facility], [facility] [[email or web address] [place] [address] Medication Refill Social History Tobacco Use Types [...] Time COVID-19 (Rule Out) 09/14/2021 09/14/2021 09/16/19 11:42 AM EDT documented as of this encounter Care Teams Electric Scoop Operator Relationship Specialty Start Date End Date Aury Wayne, BOLOGNA MAKER - MANAGER SPORTS [address] [place] [address] PCP - General 06/01/20 documented as of this encounter
--- OUTSIDE RECORDS SUMMARY | 2025-03-16 10:02 | XMS_ITS | Clinical Summary ---
Author Organization [facility] Address [address] [facility] [place] [address] Phone Care Team Providers Care Packer Dried Beef Name Role Phone Unavailable Primary Care Provider [...]
--- OUTSIDE RECORDS SUMMARY | 2025-03-16 10:02 | XMS_ITS | Encounter Summary ---
Author Organization [facility] Address [address], [address] [place] [address] Care Team Providers Care Paperhanger Apprentice Name Role Phone Aury Wayne MANAGER LABOR DELIVERY - ELECTRONIC TESTER Primary Care Provider Reason for Visit * Reason Comments Medication Refill Encounter Details Date Type Department Care Team (Late st Contact Info) Description 03/08/2021 Refill Arthur Herbert MD [address] [place] [address] [place] [address] Tristan Guallpa MD [address] [place] [address] [place] [address] Medication Refill Social History Tobacco [...] documented as of this encounter Care Teams Paperhanger Apprentice Relationship Specialty Start Date End Date Aury Wayne, MANAGER LABOR DELIVERY - ELECTRONIC TESTER [address] [place] [address] PCP - General 06/01/20 documented as of this encounter
--- OUTSIDE RECORDS SUMMARY | 2025-03-16 10:02 | XMS_ITS | Encounter Summary ---
Author Organization [facility] Address [address], [address] [place] [address] Care Team Providers Care Batter Mixer Helper Name Role Phone Aury Wayne APRN - COREY Primary Care Provider Reason for Referral * Imaging (Routine) - Open Specialty Diagnoses / Procedures Referred By Luciano martinez Referred To Contact Diagnoses Palpitations Procedures Echo (TTE) complete (PRN contrast/bubble/strain/3D) ID ECHO TTHRC R-T 2D W/WOM-MODE COMPL SPEC&COLR D ID TTE W OR WO FOL WCON,DOPPLER Aury Wayne APRN - NP [address] [place] [address] Phone: tel: fax: Referral ID Status Reason Start Date Expiration Date Visits Re quested Visits Authorized [id number] Open 05/15/2024 05/15/2025 1 1 Encounter Details Date Type Department Care Team (Latest Contact Info) Description 05/15/2024 Transcribe Orders [facility] [address] [place] [address] Aury Wayne APRN - NP [address] [place] [address] Palpitations (Primary Dx) Social History Tobacco Use Types [...] as of this encounter Plan of Treatment Scheduled Orders Name Type Priority Associated Diagnoses Orde r Schedule Echo (TTE) complete (PRN contrast/bubble/st rain/3D) CV Echocardiography Routine Palpitations Expected: 05/15/2024, Expires: 05/15/2025 documented as of this encounter Visit Diagnoses Diagnosis Palpitations- Primary documented in this encounter Care Teams Batter Mixer Helper Relationship Specialty Start Date End Date Aury Wayne APRN - CUSTOMER SUCCESS INTERN [address] [place] [address] PCP - General 06/01/20 documented as of this encounter
--- OUTSIDE RECORDS SUMMARY | 2025-03-16 10:02 | XMS_ITS | Clinical Summary ---
Author Organization [facility] Address [id number] [address] [place] [address] Care Team Providers Care Branch Employment Coordinator Name Role Phone ToneChiquita castillomike Singh APRN-OIL DIPPER Primary Care Provide r Allergies Active Allergy Reactions Criticality Noted Date Comments Latex Hives,Other (See Comments) High 08/26/2013 Metoclopramide Hcl 08/26/2020 Throat swells, hives Medications levETIRAcetam (KEPPRA) 500 mg tablet Take 1 tablet (500 mg total) by mouth in the morning and 1 tablet (500 mg total) before bedtime. Active busPIRone (BUSPAR) 5 mg tablet Take 1 tablet (5 mg total) by mouth in the morning and 1 tablet (5 mg total) before bedtime. Active butalbital-francesco taminophen-caf f (FIORICET, ESGIC) 50-325-40 mg per tablet Take 1 tablet by mouth every 4 (four) hours as needed for headaches. 30 tablet 5 Active tiZANidine (ZANAFLEX) 2 mg tablet Take 1 tablet (2 mg total) by mouth every 6 (six) hours as needed for muscle spasms. 30 tablet 5 Active furosemide (LASIX) 20 mg tablet Take 1 tablet (20 mg total) by mouth daily. 025 Discontinued metoprolol tartrate (LOPRESSOR) 100 mg tablet Take 1 tablet (100 mg total) by mouth in the morning and 1 tablet (100 mg total) before bedtime. 025 Discontinued benzocaine-men thoL (CHLORASEPTIC SORE THROAT) 6-10 mg lozenge Dissolve 1 lozenge in the mouth every 2 (two) hours as needed for sore throat. 100 tablet 4 025 Discontinued methocarbamoL (ROBAXIN) 500 mg tablet Take 1 tablet (500 mg total) by mouth in the morning and 1 tablet (500 mg total) before bedtime. 20 tablet 5 025 Discontinued Active Problems Problem Noted Date Diagnosed Date Dysphagia 12/24/2023 Abdominal pain 12/24/2023 Encounters Date Type Department Care Team Description 02/22/2025 11:02 PM EDT - 02/23/2025 12:10 AM EDT Emergency [facility] - Emergency [address] [place] [id number] Myles Sung MD Acute nonintractable headache, unspecified headache type (Primary Dx); Neck pain Discharge Disposition: Home 02/22/2025 Travel from Last 3 Months Immunizations Immunization [...] 0.5 11.7 Started: 2013 Smokeless Tobacco: Never Tobacco Cessation:Ready [...] got money to buy more. Never True 02/22/2025 Within the past 12 months th e food we bought just didn't last and we didn't have money to get more. Never True 02/22/2025 Purpose - Life Answer Date Recorded Purpose and direction in life Unknown Comments No Sex and Gender Information Value Date Recorded Sex Assigned at Not on file Legal Sex Female 5:58 PM EDT Gender Identity Not on file Sexual Orientation Not on file Last Filed Vital Signs Vital Sign Reading Time Taken Comments Blood Pressure 117/76 02/23/2025 12:10 AM EDT Pulse 76 02/23/2025 12:10 AM EDT Temperature 36.8 C (98.2 F) 02/22/2025 11:08 PM EDT Respiratory Rate 16 02/23/2025 12:10 AM EDT Oxygen Saturation 97% 02/23/2025 12:10 AM EDT Inhaled Oxygen Concentration - - Weight 68 kg (150 lb) 02/22/2025 11:08 PM EDT Height 175.3 cm (5' 9 ) 02/22/2025 11:08 PM EDT Body Mass Index 22.15 02/22/2025 11:08 PM EDT Plan of Treatment Health Maintenance Due Date Last Done Comments Tobacco Counseling 1985 Pap Smear 04/05/2024 04/05/2021 Depression Screening 12/23/2024 12/24/2023 Influenza Vaccine 03/02/2025 Adult BMI Screening 02/22/2026 02/22/2025 Tobacco Screening 02/22/2026 02/22/2025 DTaP,Tdap and Td Vaccines (1 0 - Td or Tdap) 04/17/2032 04/17/2022, 01/27/2021, 08/21/2020, Additional history exists Goals Goal Patient Goal Type Associated Problems Recent Progress Patient-Stated? Author home General Yes Olga Darling, RN Note: Evaluation of progress towards goal: home self care Medical Devices Not on file Procedures Procedure Name Priority Date/Time Associated Diagnosis Comments CT CERVICAL SPINE WO CONT STAT 02/22/2025 11:[address] BRAIN WO CONT STAT 02/22/2025 11:4 6 PM EDT from Last 3 Months Results * CT cervical spine without contrast (02/22/2025 11:46 PM EDT) Anatomical Region Laterality Modality MSK, Neuro, Spine, C-spine, Spine Covera N/A Computed Tomography 02/22/2025 11:5 4 PM EDT Narrative 02/22/2025 11:56 PM EDT History: headache, left neck pain, head injury. Exam/Technique: Serial axial CT images of the cervical spine were obtained without IV dye or intrathecal dye. All CT scans at this facility use dose modulation, iterative reconstruction, and/or weight based dosing when appropriate to reduce radiation dose to as low as reasonably achievable Comparison: 08/11/2021 Findings: Odontoid process is intact. Vertebral body heights are well-preserved. Facet joints are well aligned. There is satisfactory gross alignment. Lung apex is unremarkable IMPRESSION: No acute osseous injury Finalized by Sandro Gruber MD on 02/22/2025 11:56 PM Procedure Note Sandro Gruber MD - 02/22/2025 History: headache, left neck pain, head injury. Exam/Technique: Serial axial CT images of the cervical spine wereobtained without IV dye or intrathecal dye. All CT scans at this facilityuse dose modulation, iterative reconstruction, and/or weight based dosingwhen appropriate to reduce radiation dose to as low as reasonablyachievable Comparison: 08/11/2021 Findings: Odontoid process is intact. Vertebral body heights arewell-preserved. Facet joints are well aligned. There is satisfactory gross alignment. Lung apex is unremarkable IMPRESSION: No acute osseous injury Finalized by Sandro Gruber MD on 02/22/2025 11:56 PM Myles Sung MD IMG CT ORDERABLES Final Result * CT brain without contrast (02/22/2025 11:46 PM EDT) Anatomical Region Laterality Modality Neuro, Head, Head and Neck, Neuro Covera N/A Computed Tomography 02/22/2025 11:5 6 PM EDT Narrative 02/22/2025 11:57 PM EDT History: headache, head injury Exam/Technique: CT images of the brain were obtained without IV contrast. CT does automated exposure control was utilized. All CT scans at this facility use dose modulation, iterative reconstruction, and/or weight based dosing when appropriate to reduce radiation dose to as low as reasonably achievable. Comparison: No relevant prior studies available. Findings: The ventricular system and cortical sulci are appropriate for patient's age group. There is no intracranial hemorrhage or gross mass effect. There is no intra- axial or extra-axial fluid accumulation. There is no midline shift or transtentorial herniation. Bone window is unremarkable. The visualized paranasal sinuses are clear. IMPRESSION: Unremarkable noncontrast enhanced brain CT. Finalized by Sandro Gruber MD on 02/22/2025 11:57 PM Procedure Note Sandro Gruber MD - 02/22/2025 History: headache, head injury Exam/Technique: CT images of the brain were obtained without IV contrast. CT doesautomated exposure control was utilized. All CT scans at this facility use dose modulation, iterativereconstruction, and/or weight based dosing when appropriate to reduceradiation dose to as low as reasonably achievable. Comparison: No relevant prior studies available. Findings: The ventricular system and cortical sulci are appropriate for patient'michael group. There is no intracranial hemorrhage or gross mass effect. There is nointra-axial or extra-axial fluid accumulation. There is no midline shiftor transtentorial herniation. Bone window is unremarkable. The visualized paranasal sinuses areclear. IMPRESSION: Unremarkable noncontrast enhanced brain CT. Finalized by Sandro Gruber MD on 02/22/2025 11:57 PM Myles Sung MD IMG CT ORDERABLES Final Result from Last 3 Months Insurance [place] [employer] Advance Directives * Full Code (Latest Code Status on File) Date Activated Date Inactivated Comments 12/24/2023 11:06 AM 12/25/2023 8:23 PM Care Teams Branch Employment Coordinator Relationship Specialty Start Date End Date Aury Wayne, CELINA-SHANELLE [address] [place] [address] PCP - General Family Medicine 10/30/24
--- OUTSIDE RECORDS SUMMARY | 2025-03-16 10:02 | XMS_ITS | Clinical Summary ---
Author Organization [facility] Address [facility] [place] [address] Care Team Providers Care Quarry Plant Crusher Operator Name Role Phone Aury Wayne SHANELLE Primary Care Provider [phone] Allergies Active Allergy Reactions Criticality Noted Date [...] 4 mg/actuation nasal spray (NARCAN) Use 1 [place] in the nose. 0 Active polyethylene glycol [...] N ot on file 2022 Data from: https://www.neighborhoodatlas.medicine.[facility].edu/. Last address used for calculation Ln [...] 3-dose series) 2006 Cervical Cancer Screening 2008 HPV Vaccine (1 - 3-dose SCDM series) 2014 Influenza Vaccine (#1) 2025 DTaP,Tdap,Td Vaccine (10 - T d or Tdap) 04/17/2032 04/17/2022, 01/27/2021, 08/21/2020, Additional history exists Hepatitis C Screening Completed 07/13/2020 , 04/28/2019, 12/26/2018, Additional history exists Insurance [facility] MEDICAID Care Teams Quarry Plant Crusher Operator Relationship Specialty Start Date End Date Aury Wayne CNP [address] [place] [address] PCP - General 01/12/22
--- OUTSIDE RECORDS SUMMARY | 2025-03-16 10:02 | XMS_ITS | Encounter Summary ---
Author Organization [facility] Address [address], [address] [place] [address] Care Team Providers Care Front End Software Engineer Name Role Phone Aury Wayne APRN - COREY Primary Care Provider Reason for Referral * Imaging (Emergency) - Closed Specialty Diagnoses / Procedures Referred By Luciano t Referred To Contact Vascular Lab Diagnoses Localized swelling, mass and lump, upper limb, left Procedures VL DUP UPPER EXTREMITY VENOUS LEFT Aury Wayne APRN - NP [address] [place] [address] Phone: tel: fax: [facility] [address] [place] [id number] Phone: tel: Referral ID Status Reason Start Date Expiration Date Visits Re quested Visits Authorized [id number] Closed 06/28/2021 06/28/2022 1 1 Encounter Details Date Type Department Care Team (Latest Contact Info) Description 06/28/2021 Transcribe Orders [facility] [address] [place] [id number] Aury Wayne APRN - NP [address] [place] [address] Localized swelling, mass and lump, upper limb, left (Primary Dx) Social History Tobacco Use Types [...] documented as of this encounter Results * VL DUP UPPER EXTREMITY VENOUS LEFT (06/28/2021 3:47 PM EST) Anatomical Region Laterality Modality Vascular Ultraso und 06/28/2021 2:56 PM EST Narrative 06/29/2021 9:30 AM EST [facility] Upper Extremities Veins Procedure Patient Name ARA Date of Study 06/28/2021 SUKUMAR Leonard Date of 1985 Gender Female Age 35 year(s) Race Room Number Corporate ID # [id number] Patient MR # [id number] Manager Strategic Marketing Kimberly Pope Interpreting Physician Antoinette Brown MD Referring Aury Wayne, Referring Physician Nurse LEARNING AND DEVELOPMENT ASSOCIATE-SALES MANAGEMENT TRAINEE Practitioner Procedure Type of Study: Veins: Upper Extremities Veins, Venous Scan Upper Left. Patient Status:Out Patient. Comments:INDICATIONS: Localized swelling left arm Conclusions Summary No Thrombosis seen. Signature Left Impression: Left internal jugular, subclavian, axillary, brachial, ulnar, radial, cephalic and basilic veins are compressible with normal doppler responses. Risk Factors History +---------+ + + !Diagnosis!Date !Comments ! +---------+ + + !DVT !03/23/2015!Right Lower Extremity ! +---------+ + + Velocities are measured in cm/s ; Diameters are measured in cm Left UE Vein Measurements 2D Measurements + + + + + !Location !Visualized!Compressibility!Thrombosis! + + + + + !Prox IJV !Yes !Yes !None ! + + + + + !Dist IJV !Yes !Yes !None ! + + + + + !Prox SCV !Yes !Yes !None ! + + + + + !Dist SCV !Yes !Yes !None ! + + + + + !Innominate !Yes !Yes !None ! + + + + + !Prox Axillary !Yes !Yes !None ! + + + + + !Dist Axillary !Yes !Yes !None ! + + + + + !Prox Brachial !Yes !Yes !None ! + + + + + !Dist Brachial !Yes !Yes !None ! + + + + + !Prox Radial !Yes !Yes !None ! + + + + + !Dist Radial !Yes !Yes !None ! + + + + + !Prox Ulnar !Yes !Yes !None ! + + + + + !Dist Ulnar !Yes !Yes !None ! + + + + + !Basilic at UA !Yes !Yes !None ! + + + + + !Basilic at AF !Yes !Yes !None ! + + + + + !Basilic at LA !Yes !Yes !None ! + + + + + !Cephalic at UA !Yes !Yes !None ! + + + + + !Cephalic at AF !Yes !Yes !None ! + + + + + !Cephalic at LA !Yes !Yes !None ! + + + + + Doppler Measurements + + + + !Location !Signal !Reflux ! + + + + !IJV !Phasic !No ! + + + + !SCV !Phasic !No ! + + + + !Innominate !Phasic !No ! + + + + !Axillary !Phasic !No ! + + + + !Brachial !Phasic !No ! + + + + Procedure Note Stephanie Curry MD - 06/29/2021 [facility] Upper Extremities Veins Procedure Patient Name ARA Date of Study 06/28/2021 SUKUMAR Leonard Date of 1985 Gender Female Age 35 year(s) Race Room Number Corporate ID # [id number] Patient MR # [id number] Manager Strategic Marketing Kimberly Pope Interpreting Physician Antoinette Brown MD Referring Aury Wayne, Referring Physician Nurse CELINA-SALES MANAGEMENT TRAINEE Practitioner Procedure Type of Study: Veins: Upper Extremities Veins, Venous Scan Upper Left. Patient Status:Out Patient. Comments:INDICATIONS: Localized swelling left arm Conclusions Summary No Thrombosis seen. Signature Left Impression: Left internal jugular, subclavian, axillary, brachial, ulnar, radial, cephalic and basilic veins are compressible with normal doppler responses. Risk Factors History +---------+ + + !Diagnosis!Date !Comments! +---------+ + + !DVT !03/23/2015!Right Lower Extremity! +---------+ + + Velocities are measured in cm/s ; Diameters are measured in cm Left UE Vein Measurements 2D Measurements + + + + + !Location!Visualized!Compressibility!Thrombosis! + + + + + !Prox IJV !Yes !Yes !None! + + + + + !Dist IJV !Yes !Yes !None! + + + + + !Prox SCV !Yes !Yes !None! + + + + + !Dist SCV !Yes !Yes !None! + + + + + !Innominate !Yes !Yes !None! + + + + + !Prox Axillary !Yes !Yes !None! + + + + + !Dist Axillary !Yes !Yes !None! + + + + + !Prox Brachial !Yes !Yes !None! + + + + + !Dist Brachial !Yes !Yes !None! + + + + + !Prox Radial !Yes !Yes !None! + + + + + !Dist Radial !Yes !Yes !None! + + + + + !Prox Ulnar !Yes !Yes !None! + + + + + !Dist Ulnar !Yes !Yes !None! + + + + + !Basilic at UA !Yes !Yes !None! + + + + + !Basilic at AF !Yes !Yes !None! + + + + + !Basilic at LA !Yes !Yes !None! + + + + + !Cephalic at UA !Yes !Yes !None! + + + + + !Cephalic at AF !Yes !Yes !None! + + + + + !Cephalic at LA !Yes !Yes !None! + + + + + Doppler Measurements + + + + !Location !Signal !Reflux! + + + + !IJV !Phasic !No! + + + + !SCV !Phasic !No! + + + + !Innominate !Phasic !No! + + + + !Axillary !Phasic !No! + + + + !Brachial !Phasic !No! + + + + Aury Fernandez NP IMG VASCULAR ORDERABLES Final Result documented in this encounter Visit Diagnoses Diagnosis Localized swelling, mass and lump, upper limb, left- Primary Localized swelling, mass and lump, upper limb, left documented in this encounter Additional Health Concerns Infection Onset Date Last Indicated Resolved Time COVID-19 (Rule Out) 09/14/2021 09/14/2021 09/16/19 22 11:42 AM EDT documented as of this encounter Care Teams Front End Software Engineer Relationship Specialty Start Date End Date Aury Wayne APRN - COREY [address] [place] [phone] PCP - General 06/01/20 documented as of this encounter
--- NOTE | 2025-03-16 10:11 | ED_ITS ---
HPI - Chest Pain General Chief Complaint: Chest Pain Stated Complaint: CHEST PAIN SOB Time Seen by Provider: 03/16/25 10:00 Source: patient Mode of arrival: ambulance History of Present Illness HPI narrative: The patient is a 39-year-old female is coming to the ER with a left-sided upper chest pain that comes whenever she take a deep breath, started last night and has been continuous she denies any nausea vomiting or any other concerns, she is a cigarette smoker of less than 1 pack/day, the patient denies any cough No nausea no vomiting no other concerns no diarrhea, the pain is severe whenever she take a deep breath or moves Related Data Home Medications ?Medication ?Instructions ?Recorded ?Confirmed levetiracetam 500 mg tablet 500 mg PO BID 12/15/24 albuterol sulfate 90 mcg/actuation inhalation 03/16/25 aerosol inhaler atorvastatin 20 mg tablet mg 03/16/25 buspirone 5 mg tablet mg 03/16/25 loratadine 10 mg tablet mg 03/16/25 metoprolol tartrate 25 mg tablet mg 03/16/25 pantoprazole 20 mg tablet,delayed mg PO 03/16/25 release sertraline 25 mg tablet mg 03/16/25 Previous Rx's ?Medication ?Instructions ?Recorded diclofenac sodium 75 mg 75 mg PO Q12H PRN pain #20 t abs 03/16/25 tablet,delayed release Allergies Allergy/AdvReac Type Severity Reaction Status Date / Time latex Allergy Unknown Hives Verified 03/16/25 10:01 metoclopramide (From Reglan) AdvReac Severe Anaphylaxis Verified 03/16/25 10:01 Review of Systems ROS Status of ROS 10 or more systems reviewed and unremark able except as noted in history and below [facility] Medical History (Updated 03/16/25 @ 10:48 by Vanesa Glaser MD) History of lupus History of seizures ?Z87.898 - Personal history of other specified conditions (ICD-10) History of kidney stones ?Z87.442 - Personal history of urinary calculi (ICD-10) History of hypertension ?Z86.79 - Personal history of other diseases of the circulatory system (ICD- 10) History of depression ?Z86.59 - Personal history of other mental and behavioral disorders (ICD-10) History of asthma ?Z87.09 - Personal history of other diseases of the respiratory system (ICD- 10) Surgical History History of laparoscopy ?Z98.890 - Other specified postprocedural states (ICD-10) History of tubal ligation ?Z98.51 - Tubal ligation status (ICD-10) History of laparoscopic cholecystectomy ?Z90.49 - Acquired absence of other specified parts of digestive tract (ICD- 10) History of section ?Z98.891 - History of uterine scar from previous surgery (ICD-10) History of appendectomy ?Z90.49 - Acquired absence of other specified parts of digestive tract (ICD- 10) Social History Smoking status: Current every day smoker Little interest or pleasure in doing things: not at all Feeling down, depressed, or hopeless: not at all Exam Narrative Exam Narrative: Nurses notes and vital signs reviewed and patient is not hypoxic. General: Well-appearing and in no apparent distress. Skin: Warm, dry, no pallor noted. No rash. Head: Normocephalic, atraumatic. Neck: Supple, non-tender. Cardiovascular: Regular Rate and Rhythm without murmur, gallop or rub. Respiratory: No accessory muscle use or respiratory distress. Lungs are clear to auscultation, no wheezing, rales or rhonchi Chest Wall: There is mild tenderness upon palpation of the left anterior chest wall just lateral to the sternum at the middle but the patient have more pain whenever she take a deep breath, no ecchymosis there is no signs of trauma no crepitus Back: No midline thoracic or lumbar vertebral tenderness. No CVA tenderness Musculoskeletal: normal ROM, no calf or popliteal tenderness, no lower extremity edema/swelling GI: Abdomen is soft, non-distended. Normal bowel sounds. No masses appreciated. No tenderness to palpation. No rebound, guarding, or rigidity noted. Neurological: A&O x4. No cranial nerve dysfunction observed. No truncal ataxia. Moves all extremities. Sensation intact. Psychiatric: Cooperative and interactive. Normal mood and affect. Constitutional Vital Signs, click to edit/add: Last Vital Signs Temp 98.1 F 03/16/25 10:01 Pulse 79 03/16/25 10:01 Resp 20 03/16/25 10:01 BP 139/100 H 03/16/25 10:01 Pulse Ox 97 03/16/25 10:01 O2 Del Method Room Air 03/16/25 10:36 Course Vital Signs Vital signs: Vital Signs Temperature 98.1 F 03/16/25 10:01 Pulse Rate 79 03/16/25 10:01 Respiratory Rate 20 03/16/25 10:01 Blood Pressure 139/100 H 03/16/25 10:01 Pulse Oximetry 97 03/16/25 10:01 Oxygen Delivery Method Room Air 03/16/25 10:01 Temperature 98.1 F 03/16/25 10:01 Pulse Rate 79 03/16/25 10:01 Respiratory Rate 20 03/16/25 10:01 Blood Pressure 139/100 H 03/16/25 10:01 Pulse Oximetry 97 03/16/25 10:01 Oxygen Delivery Method Room Air 03/16/25 10:36 MDM - Chest Pain MDM Narrative Medical decision making narrative: EKG showing sinus rhythm with a heart rate of [address] elevation or depression The patient CBC and chemistry as well as troponin and D-dimer are negative The patient chest x-ray showed no acute pathology The presentation of multisegmental pleuritic muscular chest pain and the patient felt better after being treated with Toradol She was just continue taking Voltaren as needed for pain for the next few days The patient is to follow up with primary care physician in next 2-3 days or to return to the emergency department should any of the signs or symptoms worsen or new symptoms develop. The patient agrees with the following Diagnosis and Treatment plan and the patient will be discharged home. Lab Data Labs: Lab Results 03/16/25 Range/Units 10:07 WBC 7.6 (4.0-11.0) 10^3/uL RBC 4.64 (4.20-5.40) 10^6/uL Hgb 14.8 (12.0-16.0) g/dL Hct 42.9 (36.0-48.0) % MCV 92.5 (81.0-99.0) fL MCH 31.9 (26.7-34.0) pg MCHC 34.5 (29.9-35.2) g/dL RDW 12.9 (11.0-15.0) % Plt Count 237 (150-450) 10^3/uL MPV 10.6 (9.5-13.5) fL Neut % (Auto) 64.6 (43.0-75.0) % Lymph % (Auto) 24.7 (20.5-60.0) % [place] % (Auto) 7.4 (1.7-12.0) % Eos % (Auto) 2.5 (0.9-7.0) % Baso % (Auto) 0.5 (0.2-2.0) % Neut # (Auto) 4.9 (1.4-6.5) 10^3/uL Lymph # (Auto) 1.9 (1.2-3.8) 10^3/uL [place] # (Auto) 0.6 (0.3-0.8) 10^3/uL Eos # (Auto) 0.2 (0.0-0.7) 10^3/uL Baso # (Auto) 0.0 (0.0-0.1) 10^3/uL Abs Immat Gran (auto) 0.02 (0.00-0.03) 10^3/uL Imm/Tot Granulo (auto) 0.3 (0.0-0.5) % PT 10.4 (9.0-11.6) sec INR 0.98 D-Dimer 0.45 (<=0.59) mg/L FEU Sodium 138 (136-145) mmol/L Potassium 4.2 (3.5-5.1) mmol/L Chloride 106 (98-107) mmol/L Carbon Dioxide 27.8 (21.0-32.0) mmol/L Anion Gap 8.4 BUN 12.0 (7.0-18.0) mg/dL Creatinine 0.65 (0.55-1.02) mg/dL Est GFR ( Amer) >60 (>=60 mL/min/1.73m^2) Est GFR (Non-Af Amer) >60 (>=60 mL/min/1.73m^2) BUN/Creatinine Ratio 18.5 Glucose 106 (74-106) mg/dL Calcium 8.5 (8.5-10.1) mg/dL Total Bilirubin 0.4 (0.2-1.0) mg/dL AST 19 (15-37) U/L ALT 22 (14-59) U/L Alkaline Phosphatase 89 (46-116) U/L Troponin I High Sens 4.2 (4.0-51.3) pg/mL Total Protein 6.9 (6.4-8.2) g/dL Albumin 3.4 (3.4-5.0) g/dL Globulin 3.5 g/dL Albumin/Globulin Ratio 1.0 Serum HCG, Qual Negative (NEGATIVE) Discharge Plan Discharge Chief Complaint: Chest Pain Clinical Impression: Chest pain, pleuritic, Atypical chest pain Patient Disposition: Home, Self-Care Time of Disposition Decision: 11:07 Condition: Good Prescriptions / Home Meds: New diclofenac sodium 75 mg tablet,delayed release (DR/EC) 75 mg PO Q12H PRN (Reason: pain) Qty: 20 0RF No Action levetiracetam 500 mg tablet 500 mg PO BID buspirone 5 mg tablet atorvastatin 20 mg tablet pantoprazole 20 mg tablet,delayed release (DR/EC) PO sertraline 25 mg tablet albuterol sulfate 90 mcg/actuation HFA aerosol inhaler INHALATION loratadine 10 mg tablet metoprolol tartrate 25 mg tablet Print Language: Citizen [place] Instructions: Pleurisy (DC), Chest Wall Pain (ED) Referrals: GINI TINOCO, SYSTEMS TEST ANALYST [Primary Care Provider] - 1 week
[2025-03-16 10:13] LABS: Hematocrit 42.9 % (36.0-48.0); Hemoglobin 14.8 g/dL (12.0-16.0); Immature Granulocytes Abs Auto 0.02 10^3/uL (0.00-0.03); Immature Granulocytes Pct Auto 0.3 % (0.0-0.5); Lymphocytes Absolute Auto 1.9 10^3/uL (1.2-3.8); Mean Corpuscular HGB Conc 34.5 g/dL (29.9-35.2); Mean Corpuscular Hemoglobin 31.9 pg (26.7-34.0); Mean Corpuscular Volume 92.5 fL (81.0-99.0); Platelet Count 237 10^3/uL (150-450); Red Blood Count 4.64 10^6/uL (4.20-5.40); White Blood Count 7.6 10^3/uL (4.0-11.0)
[2025-03-16] MEDS: FAMOTIDINE/PF 20 MG/2 ML VIAL IV (10:24)
[2025-03-16] MEDS: KETOROLAC TROMETHAMINE 30 MG/ML VIAL IVP (10:24)
[2025-03-16 10:29] LABS: Alanine Aminotransferase 22 U/L (14-59); Albumin Globulin Ratio 1.0; Albumin Level 3.4 g/dL (3.4-5.0); Alkaline Phosphatase 89 U/L (46-116); Anion Gap 8.4; Aspartate Amino Transferase 19 U/L (15-37); Blood Urea Nitrogen 12.0 mg/dL (7.0-18.0); Calcium 8.5 mg/dL (8.5-10.1); Carbon Dioxide 27.8 mmol/L (21.0-32.0); Chloride 106 mmol/L (98-107); Estimated GFR (African America >60 (>=60 mL/min/1.73m^2); Estimated GFR (Non-African Ame >60 (>=60 mL/min/1.73m^2); Globulin 3.5 g/dL; Glucose 106 mg/dL (74-106); Potassium 4.2 mmol/L (3.5-5.1); Sodium 138 mmol/L (136-145); Total Protein 6.9 g/dL (6.4-8.2)
[2025-03-16 10:34] LABS: INR 0.98; Prothrombin Time 10.4 sec (9.0-11.6)
== END 2025-03-16 11:22 | disposition home or self-care (01) ==
PROVIDERS: Emergency Provider Emergency Medicine; PCP Nurse Practitioner Family
DX: R07.89 Other chest pain (principal); R07.81 Pleurodynia; F17.210 Nicotine dependence, cigarettes, uncomplicated
CPT/HCPCS: 36415; 71045; 80053; 84484; 84703; 85025; 85378; 85610; 93005; 96374; 96375; 99285; J1885; J3490